=== PATIENT | female | born 1970 | race American Indian/Alaskan Native ===

== ENCOUNTER 2018-01-06 13:54 | Emergency (ER) | payer MEDICAID, SELFPAY ==
[2018-01-06 14:04] VITALS: BP 175/98
[2018-01-06] MEDS ORDERED: traMADol 50 MG Tab PO ONE (15:04)
[2018-01-06] MEDS ORDERED: Naproxen 500 MG Tab PO ONE (15:04)
--- NOTE | 2018-01-06 15:17 | EDM.PDOC ---
Scribed by Chyna Castle 01/06/18 1511 for Fritz Vasquez MD ED HPI GENERAL MEDICAL PROBLEM - General Chief Complaint: Lower Extremity Injury/Pain Stated Complaint: RT KNEE Time Seen by Provider: 01/06/18 14:33 Source of Information: Reports: Patient, RN, RN Notes Reviewed History Limitations: Reports: No Limitations - History of Present Illness INITIAL COMMENTS - FREE TEXT/NARRATIVE: Patient presents to ER with complaint of right knee pain without injury. History of arthritis around the "knee cap". No change in activity level. It has become progressively more pain over the past several weeks. 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 no reaction. Dermatologic History: Reports: Cellulitis Other Dermatologic History: right calve cellulitis - Infectious Disease History Infectious Disease History: Reports: C-Difficile - Past Surgical History Musculoskeletal Surgical History: Reports: Arthroscopic Knee, Carpal Tunnel, Shoulder Surgery Social & Family History - Family History Family Medical History: Noncontributory HEENT: Reports: Other (See Below) Other HEENT Family History: mother had surgery on eyes, unsure what for. Cardiac: Reports: Hypertension (mother) Other Cardiac Family History: Mother has hypertension. Respiratory: Reports: Asthma, Sleep Apnea Other Respiratory Family Hisory: Mother has asthma and sleep apnea. OBGYN: Reports: Musculoskeletal: Reports: Arthritis - Tobacco Use Smoking Status *Q: Current Every Day Smoker Years of Tobacco use: 20 Packs/Tins Daily: 0.5 Used Tobacco, but Quit: No Second Hand Smoke Exposure: Yes - Caffeine Use Caffeine Use: Reports: Coffee Other Caffeine Use: 2-3 cups/day - Alcohol Use Days Per Week of Alcohol Use: 0 - Recreational Drug Use Recreational Drug Use: No Review of Systems - Review of Systems Review Of Systems: ROS reveals no pertinent complaints other than HPI. ED EXAM, GENERAL - Physical Exam Exam: See Below Exam Limited By: No Limitations General Appearance: Alert, WD/WN, No Apparent Distress, Obese Head: Atraumatic, Normocephalic Respiratory/Chest: No Respiratory Distress Extremities: Other (right knee tender to palpation anteriorly and medially. Mild soft tissue swelling. No erythema. No increased warmth. Full but painful range of motion. ) Neurological: Alert, No Motor/Sensory Deficits Course - Vital Signs Last Recorded V/S: Last Vital Signs Temp 37.3 C 01/06/18 14:02 Pulse 103 H 01/06/18 14:02 Resp 16 01/06/18 14:02 BP 175/98 H 01/06/18 14:02 Pulse Ox 97 01/06/18 14:02 - Orders/Labs/Meds Orders: Active Orders 24 hr Category Date Time Status Knee 3V Rt [CR] Urgent Exams 01/06/18 14:34 Taken DME for Discharge [COMM] Routine Oth 01/06/18 15:03 Ordered Meds: Medications Discontinued Medications Generic Name Dose Route Start Last Admin Trade Name Ray PRN Reason Stop Dose Admin Naproxen 500 mg 01/06/18 15:04 Naprosyn PO 01/06/18 15:05 ONETIME ONE Tramadol HCl 50 mg 01/06/18 15:04 Ultram PO 01/06/18 15:05 ONETIME ONE - Radiology Interpretation Free Text/Narrative:: Xray Rt knee: OA, no fracture; see Rad. report. Departure - Departure Time of Disposition: 15:06 Disposition: Home, Self-Care 01 Condition: Good Clinical Impression: Osteoarthritis of right knee Qualifiers: Osteoarthritis type: unspecified Qualified Code(s): M17.11 - Unilateral primary osteoarthritis, right knee - Discharge Information Instructions: Osteoarthritis, Knee Pain, [id number] Forms: ED Department Discharge Additional Instructions: Rx: Naprosyn 500mg *Take with food/meals. Rx: Tramadol 50mg *Do not drive or work while under the influence of this medication. Use crutches as needed for partial weight bearing as needed. Use over the counter Capsaisin cream: Apply to affected knee four times a day. Follow up in clinic this week for recheck. - My Orders Last 24 Hours: My Active Orders 01/06/18 14:34 Knee 3V Rt [CR] Urgent 01/06/18 15:03 DME for Discharge [COMM] Routine - Assessment/Plan Last 24 Hours: My Active Orders 01/06/18 14:34 Knee 3V Rt [CR] Urgent 01/06/18 15:03 DME for Discharge [COMM] Routine I have read and agree with the documentation that has been completed regarding this visit. By signing this record, I attest that the documentation was completed in my physical presence and is an accurate record of the encounter.
== END 2018-01-06 15:25 | disposition home or self-care (01) ==
LOC: DL.ED 13:54
DX: M17.11 Unilateral primary osteoarthritis, right knee (principal); I10 Essential (primary) hypertension; F17.210 Nicotine dependence, cigarettes, uncomplicated; Z88.5 Allergy status to narcotic agent; Z88.1 Allergy status to other antibiotic agents; Z88.8 Allergy status to other drugs, medicaments and biological substances
CPT/HCPCS: 73562; 99283; A9270

== ENCOUNTER 2019-11-16 17:16 | Emergency (ER) | payer OTHER ==
[2019-11-16] MEDS ORDERED: Acetaminophen/HYDROcodone 325-10 MG Tab PO ONE (17:17)
[2019-11-16] MEDS ORDERED: Cyclobenzaprine 10 MG Tab PO ONE (17:17)
[2019-11-16 18:17] VITALS: BP 157/87; PULSE 116
[2019-11-16 19:16] LABS: ANION GAP 11.8 mEq/L (7-13)
[2019-11-16] MEDS: HYDROmorphone 1 MG/ML Syringe IVPUSH ONE (19:33)
[2019-11-16] MEDS: Ondansetron 4 MG/2 ML SDV IVPUSH ONE (19:34)
--- NOTE | 2019-11-16 20:13 | EDM.PDOC ---
ED HPI GENERAL MEDICAL PROBLEM - General Chief Complaint: Lower Extremity Injury/Pain Stated Complaint: LEFT HIP MUSCLE SPASMS Time Seen by Provider: 11/16/19 19:00 Source of Information: Reports: Patient History Limitations: Reports: No Limitations - History of Present Illness INITIAL COMMENTS - FREE TEXT/NARRATIVE: Pain left hip past couple months, MRI done question of cancer vs arthritis, Appointment pending in [place]. Had one and MRI reviewed with reported differing opinion. Taking hydrocodone 5mg and ibuprofen not helping. Tonight severe muscle spasms in left thigh radiating down to toes at times. Hurts to step on foot. No weakness just pain with minimal movment, clammy on arrival per RN. Left Hip Pain Score (Numeric/FACES): 10 - Related Data Allergies Allergy/AdvReac Type Severity Reaction Status Date / Time amoxicillin Allergy Rash Verified 11/16/19 18:15 codeine Allergy Rash Verified 11/16/19 18:15 duloxetine [From Cymbalta] Allergy Depression Verified 11/16/19 18:15 Home Meds: Home Meds . 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 no reaction. Immunologic History: Reports: None Oncologic (Cancer) History: Reports: None Dermatologic History: Reports: Cellulitis Other Dermatologic History: right calve cellulitis - Infectious Disease History Infectious Disease History: Reports: C-Difficile - Past Surgical History Head Surgeries/Procedures: Reports: None Female Surgical History: Reports: Hysterectomy Musculoskeletal Surgical History: Reports: Arthroscopic Knee, Carpal Tunnel, Shoulder Surgery Social & Family History - Family History Family Medical History: Noncontributory HEENT: Reports: Other (See Below) Other HEENT Family History: mother had surgery on eyes, unsure what for. Cardiac: Reports: Hypertension Other Cardiac Family History: Mother has hypertension. Respiratory: Reports: Asthma, Sleep Apnea Other Respiratory Family Hisory: Mother has asthma and sleep apnea. OBGYN: Reports: Musculoskeletal: Reports: Arthritis - Tobacco Use Smoking Status *Q: Current Every Day Smoker Years of Tobacco use: 34 Packs/Tins Daily: 0.5 - Caffeine Use Caffeine Use: Reports: Soda Other Caffeine Use: 2-3 cups/day - Recreational Drug Use Recreational Drug Use: No Review of Systems - Review of Systems Review Of Systems: Comprehensive ROS is negative, except as noted in HPI. ED EXAM, GENERAL - Physical Exam Exam: See Below Exam Limited By: No Limitations General Appearance: Alert, No Apparent Distress Eye Exam: Bilateral Eye: EOMI Ears: Normal External Exam, Hearing Grossly Normal Nose: Normal Inspection Throat/Mouth: Normal Inspection Head: Atraumatic, Normocephalic Neck: Normal Inspection, Full Range of Motion Respiratory/Chest: No Respiratory Distress, Lungs Clear, Normal Breath Sounds Cardiovascular: Normal Peripheral Pulses, Regular Rate, Rhythm GI/Abdominal: Normal Bowel Sounds, Soft, Non-Tender Extremities: Leg Pain, Limited Range of Motion (pain with external rotation and flexion left hip Pain SI with movment, ) Neurological: Alert, Oriented, Normal Cognition Skin Exam: Warm, Dry, Intact, Normal Color Course - Vital Signs Last Recorded V/S: Last Vital Signs Temp 97.0 F 11/16/19 18:15 Pulse 116 H 11/16/19 18:15 Resp 20 11/16/19 18:15 BP 157/87 H 11/16/19 18:15 Pulse Ox 96 11/16/19 18:15 - Orders/Labs/Meds Labs: Laboratory Tests 11/16/19 11/16/19 Range/Units 18:12 18:12 WBC 9.9 (5.0-10.0) 10^3/uL RBC 5.02 (4.2-5.4) 10^6/uL Hgb 13.5 (12.0-16.0) g/dL Hct 42.4 (37.0-47.0) % MCV 84.5 (80-100) fL MCH 26.9 L (27.0-34.0) pg MCHC 31.8 L (33.0-35.0) g/dL Plt Count 414 D (150-450) 10^3/uL Neut % (Auto) 63.8 (42.2-75.2) % Lymph % (Auto) 24.7 (20.5-50.1) % [place] % (Auto) 6.1 (2-8) % Eos % (Auto) 5.1 H (1.0-3.0) % Baso % (Auto) 0.3 (0.0-1.0) % Sodium 141 (136-145) mmol/L Potassium 3.8 (3.5-5.1) mmol/L Chloride 103 (98-107) mmol/L Carbon Dioxide 30 (21-32) mmol/L Anion Gap 11.8 (7-13) mEq/L BUN 23 H (7-18) mg/dL Creatinine 1.12 H (0.55-1.02) mg/dL Est Cr Clr Drug Dosing 53.04 mL/min Estimated GFR (MDRD) 52 BUN/Creatinine Ratio 20.5 (No establ ref range) Glucose 112 H (74-99) mg/dL Calcium 8.4 L (8.5-10.1) mg/dL Total Bilirubin 0.1 L (0.2-1.0) mg/dL AST 23 (15-37) U/L ALT 43 (14-59) U/L Alkaline Phosphatase 113 (46-116) U/L C-Reactive Protein 1.4 H (0.0-0.9) mg/dL Total Protein 8.0 (6.4-8.2) g/dL Albumin 3.4 (3.4-5.0) g/dL Globulin 4.6 Albumin/Globulin Ratio 0.7 Meds: Medications Discontinued Medications Generic Name Dose Route Start Last Admin Trade Name Robinq PRN Reason Stop Dose Admin Hydrocodone Bitart/Acetaminophen Confirm 11/16/19 20:07 11/16/19 20:19 [place] 325-10 Mg Administered 11/16/19 20:08 Not Given Dose 2 tab .ROUTE .STK-MED ONE Cyclobenzaprine HCl Confirm 11/16/19 20:07 11/16/19 20:19 Flexeril Administered 11/16/19 20:08 Not Given Dose 20 mg .ROUTE .STK-MED ONE Hydromorphone HCl 1 mg 11/16/19 19:15 11/16/19 19:33 Dilaudid IVPUSH 11/16/19 19:16 1 mg ONETIME ONE Administration Ondansetron HCl 4 mg 11/16/19 19:15 11/16/19 19:34 Zofran IVPUSH 11/16/19 19:16 4 mg ONETIME ONE Administration Departure - Departure Time of Disposition: 20:06 Disposition: Home, Self-Care 01 Condition: Good Clinical Impression: Pain, joint, hip, left - Discharge Information *PRESCRIPTION DRUG MONITORING PROGRAM REVIEWED*: No *COPY OF PRESCRIPTION DRUG MONITORING REPORT IN PATIENT MEHREEN: No Instructions: Hip Pain Forms: ED Department Discharge Additional Instructions: rest ice to hip hydrocodone apap 10/325 one every 6 hours as needed for pain flexeril 10mg one every 8 hours as needed for pain walker to aid linda load bearing on hip follow up this week with primary care Sepsis Event Note - Evaluation Sepsis Screening Result: No Definite Risk - Focused Exam Vital Signs: Vital Signs Temp Pulse Resp BP Pulse Ox 11/16/19 18:15 97.0 F 116 H 20 157/87 H 96 Date Exam was Performed: 11/17/19 Time Exam was Performed: 01:23
[2019-11-16] MEDS: Acetaminophen/HYDROcodone 325-10 MG Tab ONE (20:19)
[2019-11-16] MEDS: Cyclobenzaprine 10 MG Tab ONE (20:19)
== END 2019-11-16 20:18 | disposition home or self-care (01) ==
LOC: DL.ED 17:16
DX: M25.552 Pain in left hip (principal); E66.9 Obesity, unspecified; Z68.41 Body mass index [BMI] 40.0-44.9, adult; J45.909 Unspecified asthma, uncomplicated; I10 Essential (primary) hypertension; Z88.0 Allergy status to penicillin; Z88.5 Allergy status to narcotic agent; Z88.8 Allergy status to other drugs, medicaments and biological substances; F17.210 Nicotine dependence, cigarettes, uncomplicated
CPT/HCPCS: 36415; 72131; 72192; 80053; 85025; 86140; 96374; 96375; 99284; A9270; J1170; J2405; 99283

== ENCOUNTER 2019-12-22 19:34 | Emergency (ER) | payer OTHER ==
[2019-12-22] MEDS ORDERED: Cyclobenzaprine 10 MG Tab PO ONE (19:35)
[2019-12-22] MEDS ORDERED: Acetaminophen/HYDROcodone 325-10 MG Tab PO ONE ×2 (19:35→20:01)
[2019-12-22 19:44] VITALS: PULSE 115
[2019-12-22 19:50] VITALS: BP 152/84
[2019-12-22] MEDS ORDERED: Acetaminophen/HYDROcodone 325-10 MG Tab ONE (20:14)
[2019-12-22] MEDS ORDERED: Cyclobenzaprine 10 MG Tab ONE (20:14)
--- NOTE | 2019-12-22 20:28 | EDM.PDOC ---
ED HPI GENERAL MEDICAL PROBLEM - General Chief Complaint: Lower Extremity Injury/Pain Stated Complaint: back pain Time Seen by Provider: 12/22/19 19:40 Source of Information: Reports: Patient History Limitations: Reports: No Limitations - History of Present Illness INITIAL COMMENTS - FREE TEXT/NARRATIVE: ED per w/c with c/o left hip pain ongoing since August. Intermittent periods of pain worsening with muscle spasms. Steroid shot last week into hip. Pain has been worse since Ran out of Meloxicam last week. Unable to get in to see primary. pain starts left hip, radiates to left anterior groin and down left anterior thigh. Denies injury, No weakness. Increased pain with movement and weight bearing Left Hip Pain Score (Numeric/FACES): 10 - Related Data Allergies Allergy/AdvReac Type Severity Reaction Status Date / Time amoxicillin Allergy Rash Verified 12/22/19 19:42 codeine Allergy Rash Verified 12/22/19 19:42 duloxetine [From Cymbalta] Allergy Depression Verified 12/22/19 19:42 Home Meds: Home Meds . 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 no reaction. Immunologic History: Reports: None Oncologic (Cancer) History: Reports: None Dermatologic History: Reports: Cellulitis Other Dermatologic History: right calve cellulitis - Infectious Disease History Infectious Disease History: Reports: C-Difficile - Past Surgical History Head Surgeries/Procedures: Reports: None Female Surgical History: Reports: Hysterectomy Musculoskeletal Surgical History: Reports: Arthroscopic Knee, Carpal Tunnel, Shoulder Surgery Social & Family History - Family History Family Medical History: Noncontributory HEENT: Reports: Other (See Below) Other HEENT Family History: mother had surgery on eyes, unsure what for. Cardiac: Reports: Hypertension Other Cardiac Family History: Mother has hypertension. Respiratory: Reports: Asthma, Sleep Apnea Other Respiratory Family Hisory: Mother has asthma and sleep apnea. OBGYN: Reports: Musculoskeletal: Reports: Arthritis - Tobacco Use Smoking Status *Q: Current Every Day Smoker Years of Tobacco use: 32 Packs/Tins Daily: 0.3 Second Hand Smoke Exposure: Yes - Caffeine Use Caffeine Use: Reports: Soda Other Caffeine Use: 2-3 cups/day - Recreational Drug Use Recreational Drug Use: No Review of Systems - Review of Systems Review Of Systems: Comprehensive ROS is negative, except as noted in HPI. ED EXAM, GENERAL - Physical Exam Exam: See Below Exam Limited By: Language Barrier General Appearance: Alert, Moderate Distress Eye Exam: Bilateral Eye: EOMI Ears: Normal External Exam Nose: Normal Inspection Throat/Mouth: Normal Inspection Head: Atraumatic, Normocephalic Neck: Normal Inspection Respiratory/Chest: No Respiratory Distress, Lungs Clear Cardiovascular: Regular Rate, Rhythm GI/Abdominal: Normal Bowel Sounds, Soft Back Exam: Full Range of Motion. No: Paraspinal Tenderness, Vertebral Tenderness Extremities: No Pedal Edema, Leg Pain (anterior lateral upper thigh, left hip), Limited Range of Motion Neurological: Alert, Oriented, Normal Cognition Psychiatric: Anxious, Tearful Skin Exam: Warm, Dry, Intact, Normal Color Course - Vital Signs Last Recorded V/S: Last Vital Signs Temp 96.9 F 12/22/19 19:37 Pulse 115 H 12/22/19 19:37 Resp 18 12/22/19 19:37 BP 152/84 H 12/22/19 19:50 Pulse Ox 97 12/22/19 19:37 - Orders/Labs/Meds Meds: Medications Discontinued Medications Generic Name Dose Route Start Last Admin Trade Name Ray PRN Reason Stop Dose Admin Hydrocodone Bitart/Acetaminophen 1 tab 12/22/19 20:01 12/22/19 20:07 [place] 325-10 Mg PO 12/22/19 20:02 1 tab ONETIME ONE Administration Hydrocodone Bitart/Acetaminophen Confirm 12/22/19 20:14 12/22/19 20:22 [place] 325-10 Mg Administered 12/22/19 20:15 Not Given Dose 3 tab .ROUTE .STK-MED ONE Cyclobenzaprine HCl Confirm 12/22/19 20:14 12/22/19 20:22 Flexeril Administered 12/22/19 20:15 Not Given Dose 20 mg .ROUTE .STK-MED ONE Orphenadrine Citrate 60 mg 12/22/19 20:02 12/22/19 20:07 Norflex IM 12/22/19 20:03 60 mg ONETIME ONE Administration Departure - Departure Time of Disposition: 20:16 Disposition: Home, Self-Care 01 Condition: Good Clinical Impression: Left hip pain, Muscle spasm - Discharge Information *PRESCRIPTION DRUG MONITORING PROGRAM REVIEWED*: Yes *COPY OF PRESCRIPTION DRUG MONITORING REPORT IN PATIENT MEHREEN: No Instructions: Muscle Cramps and Spasms, [id number] Referrals: Javier Ferreira [Primary Care Provider] - Forms: ED Department Discharge Additional Instructions: limited weight bearing follow up with specialist in am meloxicam 7.5mg one daily as needed, follow with primary care for additional refills hydrocodone 10/325 one every 6 hours as needed for pain #7 flexeril 10mg one every 8 hours as needed for spasm ice to hip Sepsis Event Note - Evaluation Sepsis Screening Result: No Definite Risk - Focused Exam Vital Signs: Vital Signs Temp Pulse Resp BP Pulse Ox 12/22/19 19:50 152/84 H 12/22/19 19:37 96.9 F 115 H 18 191/95 H 97 Date Exam was Performed: 12/23/19 Time Exam was Performed: 03:30
== END 2019-12-22 20:30 | disposition home or self-care (01) ==
LOC: DL.ED 19:34
DX: M25.552 Pain in left hip (principal); M62.838 Other muscle spasm; I10 Essential (primary) hypertension; M19.90 Unspecified osteoarthritis, unspecified site; E66.9 Obesity, unspecified; Z68.42 Body mass index [BMI] 45.0-49.9, adult; F17.210 Nicotine dependence, cigarettes, uncomplicated; Z88.1 Allergy status to other antibiotic agents; Z88.5 Allergy status to narcotic agent; Z88.8 Allergy status to other drugs, medicaments and biological substances
CPT/HCPCS: 96372; 99283; A9270-GY; J2360

== ENCOUNTER 2020-02-05 16:03 | Emergency (ER) | payer MEDICAID, OTHER ==
[2020-02-05 16:51] VITALS: BP 148/58; PULSE 112
--- NOTE | 2020-02-05 16:57 | EDM.PDOC ---
Scribed by Chyna Castle 02/05/20 0617 for Fritz Vasquez MD ED HPI GENERAL MEDICAL PROBLEM - General Chief Complaint: Back Pain or Injury Stated Complaint: pinched nerve Time Seen by Provider: 02/05/20 16:42 Source of Information: Reports: Patient, RN, RN Notes Reviewed History Limitations: Reports: No Limitations - History of Present Illness INITIAL COMMENTS - FREE TEXT/NARRATIVE: Patient presents to ER via POV with acute flare-up of acute low back pain worsening over the past several days without any acute injury. She has had this happen several times in the past. Complains of pain radiating from the low back through the left leg at the posterior and medial thigh to the knee and occasionally to the ankle. She describes the pain as sharp and at times electric or shock like. Denies loss of bowel or bladder control, saddle area numbness or motor weakness. Onset: Unknown/Unsure Duration: Getting Worse Location: Reports: Back Quality: Reports: Ache Severity: Severe Improves with: Reports: None Worsens with: Reports: None Associated Symptoms: Reports: No Other Symptoms Lower Back Pain Score (Numeric/FACES): 10 - Related Data Allergies Allergy/AdvReac Type Severity Reaction Status Date / Time amoxicillin Allergy Rash Verified 12/22/19 19:42 codeine Allergy Rash Verified 12/22/19 19:42 duloxetine [From Cymbalta] Allergy Depression Verified 12/22/19 19:42 Home Meds: Home Meds . [No Known Home Meds] 01/06/18 [History] . 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 no reaction. Immunologic History: Reports: None Oncologic (Cancer) History: Reports: None Dermatologic History: Reports: Cellulitis Other Dermatologic History: right calve cellulitis - Infectious Disease History Infectious Disease History: Reports: C-Difficile - Past Surgical History Head Surgeries/Procedures: Reports: None Female Surgical History: Reports: Hysterectomy Musculoskeletal Surgical History: Reports: Arthroscopic Knee, Carpal Tunnel, Shoulder Surgery Social & Family History - Family History Family Medical History: Noncontributory HEENT: Reports: Other (See Below) Other HEENT Family History: mother had surgery on eyes, unsure what for. Cardiac: Reports: Hypertension Other Cardiac Family History: Mother has hypertension. Respiratory: Reports: Asthma, Sleep Apnea Other Respiratory Family Hisory: Mother has asthma and sleep apnea. OBGYN: Reports: Musculoskeletal: Reports: Arthritis - Caffeine Use Caffeine Use: Reports: Coffee, Soda Other Caffeine Use: 2-3 cups/day - Living Situation & Occupation Living situation: Reports: with Family ED ROS GENERAL - Review of Systems Review Of Systems: Comprehensive ROS is negative, except as noted in HPI. ED EXAM,LOWER BACK PAIN/INJURY - Physical Exam Exam: See Below Exam Limited By: No Limitations General Appearance: Alert, WD/WN, No Apparent Distress, Obese Head: Atraumatic, Normocephalic Neck: Normal Inspection, Supple, Non-Tender, Full Range of Motion Respiratory/Chest: No Respiratory Distress, Lungs Clear, Normal Breath Sounds, No Accessory Muscle Use, Chest Non-Tender Cardiovascular: Normal Peripheral Pulses, Regular Rate, Rhythm, No Edema GI/Abdominal: Normal Bowel Sounds, Soft, Non-Tender, Other (benign obese abdomen ) (Female) Exam: Deferred Rectal (Female) Exam: Deferred Back Exam: Decreased Range of Motion, Muscle Spasm, Paraspinal Tenderness. No: CVA Tenderness (L), CVA Tenderness (R), Vertebral Tenderness Extremities: Normal Inspection, Normal Range of Motion, Normal Capillary Refill Neurological: Alert, Normal Mood/Affect, Normal Dorsiflexion, CN II-XII Intact, No Motor/Sensory Deficits, Oriented x 3 Psychiatric: Normal Mood, Tearful Skin Exam: Warm, Dry, Intact, Normal Color, No Rash Course - Vital Signs Last Recorded V/S: Last Vital Signs Temp 96.5 F L 02/05/20 16:15 Pulse 112 H 02/05/20 16:15 Resp 20 02/05/20 16:15 BP 148/58 H 02/05/20 16:15 Pulse Ox 96 02/05/20 16:15 - Orders/Labs/Meds Meds: Medications Discontinued Medications Generic Name Dose Route Start Last Admin Trade Name Ray PRN Reason Stop Dose Admin Hydrocodone Bitart/Acetaminophen 1 tab 02/05/20 16:40 [place] 325-10 Mg PO 02/05/20 16:41 ONETIME ONE Dexamethasone 8 mg 02/05/20 16:39 Dexamethasone IM 02/05/20 16:40 ONETIME ONE Orphenadrine Citrate 60 mg 02/05/20 16:39 Norflex IM 02/05/20 16:40 ONETIME ONE Departure - Departure Time of Disposition: 16:54 Disposition: Home, Self-Care 01 Condition: Good Clinical Impression: Acute left lumbar radiculopathy - Discharge Information *PRESCRIPTION DRUG MONITORING PROGRAM REVIEWED*: Not Applicable *COPY OF PRESCRIPTION DRUG MONITORING REPORT IN PATIENT MEHREEN: Not Applicable Instructions: Lumbosacral Radiculopathy Forms: ED Department Discharge Additional Instructions: Rx: Cyclobenzaprine 10mg *No driving, may cause drowsiness. Rx: Decadron (Dexamethasone) 4mg Rx: Hydrocodone APAP 5mg/325mg *No driving, may cause drowsiness. Follow up in clinic next week for recheck and consideration of referral to a back specialist. Sepsis Event Note - Focused Exam Vital Signs: Vital Signs Temp Pulse Resp BP Pulse Ox 02/05/20 16:15 96.5 F L 112 H 20 148/58 H 96 Date Exam was Performed: 02/05/20 Time Exam was Performed: 16:51 I have read and agree with the documentation that has been completed regarding this visit. By signing this record, I attest that the documentation was completed in my physical presence and is an accurate record of the encounter.
[2020-02-05] MEDS: Dexamethasone 4 MG/ML SDV IM ONE (16:59)
[2020-02-05] MEDS: Acetaminophen/HYDROcodone 325-10 MG Tab PO ONE (17:00)
== END 2020-02-05 17:27 | disposition home or self-care (01) ==
LOC: DL.ED 16:03
DX: M54.16 Radiculopathy, lumbar region (principal); I10 Essential (primary) hypertension; E66.9 Obesity, unspecified; Z88.1 Allergy status to other antibiotic agents; Z88.5 Allergy status to narcotic agent; Z88.8 Allergy status to other drugs, medicaments and biological substances; Z68.42 Body mass index [BMI] 45.0-49.9, adult
CPT/HCPCS: 96372; 99283; A9270; J1100; J2360

== ENCOUNTER 2020-08-31 18:05 | Emergency (ER) | payer MEDICAID, OTHER ==
[2020-08-31] MEDS ORDERED: Furosemide 40 MG Tab PO ONE (18:06)
[2020-08-31] MEDS ORDERED: Doxycycline 100 MG Vial IV ONE (18:06)
--- NOTE | 2020-08-31 18:19 | EDM.PDOC ---
ED HPI GENERAL MEDICAL PROBLEM - General Stated Complaint: RETAINING FLUID, BREATHING Time Seen by Provider: 08/31/20 18:18 Source of Information: Reports: Patient, RN History Limitations: Reports: No Limitations - History of Present Illness INITIAL COMMENTS - FREE TEXT/NARRATIVE: ED per w/c c/o swelling, SOB, on prednisone, Tested negative COVID 07/27. On prednisone one week for bronchitis and left hip pain. Breathing worse tonight when lying flat, noticed redness to legs tonight. Swelling actually started yesterday, Has had 2-3 previous episodes since July, Usually resolve with elevation. Seen in clinic x 1, Admits eating large amount of ham prior to this onset. Ocassional cough. no fever or chills. no chest pain. Denies hx of blood clots. Notes swelling up to waist. - Related Data Allergies Allergy/AdvReac Type Severity Reaction Status Date / Time amoxicillin Allergy Rash Verified 08/31/20 20:54 codeine Allergy Rash Verified 08/31/20 20:54 duloxetine [From Cymbalta] Allergy Depression Verified 08/31/20 20:54 Home Meds: Home Meds Acetaminophen/Diphenhydramine [Tylenol Pm Ex-Strength Caplet] 1,000 mg PO ASDIRECTED PRN 02/05/20 [History] Meloxicam 15 mg PO ASDIRECTED PRN 02/05/20 [History] buPROPion [Wellbutrin] 100 mg PO DAILY 02/05/20 [History] lisinopriL [Lisinopril] 10 mg PO DAILY 02/05/20 [History] Past Medical History HEENT History: Reports: Impaired Vision Other HEENT History: wears glasses Cardiovascular History: Reports: Hypertension Respiratory History: Reports: Asthma, Bronchitis, Recurrent, Sleep Apnea Gastrointestinal History: Reports: None Genitourinary History: Reports: UTI, Recurrent 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 no reaction. Immunologic History: Reports: None Oncologic (Cancer) History: Reports: None Dermatologic History: Reports: Cellulitis Other Dermatologic History: right calve cellulitis - Infectious Disease History Infectious Disease History: Reports: C-Difficile - Past Surgical History Head Surgeries/Procedures: Reports: None Female Surgical History: Reports: Hysterectomy Musculoskeletal Surgical History: Reports: Arthroscopic Knee, Carpal Tunnel, Shoulder Surgery Social & Family History - Family History Family Medical History: No Pertinent Family History HEENT: Reports: Other (See Below) Other HEENT Family History: mother had surgery on eyes, unsure what for. Cardiac: Reports: Hypertension Other Cardiac Family History: Mother has hypertension. Respiratory: Reports: Asthma, Sleep Apnea Other Respiratory Family Hisory: Mother has asthma and sleep apnea. OBGYN: Reports: Musculoskeletal: Reports: Arthritis - Caffeine Use Caffeine Use: Reports: Coffee, Soda Other Caffeine Use: 2-3 cups/day - Living Situation & Occupation Living situation: Reports: with Family ED ROS GENERAL - Review of Systems Review Of Systems: See Below ED EXAM, GENERAL - Physical Exam Exam: See Below Exam Limited By: No Limitations General Appearance: Alert, Anxious, Mild Distress Eye Exam: Bilateral Eye: EOMI Ears: Normal External Exam, Normal TMs Nose: Normal Inspection Throat/Mouth: Normal Inspection Head: Atraumatic Neck: Normal Inspection, Full Range of Motion Respiratory/Chest: No Respiratory Distress, Crackles (fine left base) Cardiovascular: Normal Peripheral Pulses, Regular Rate, Rhythm. No: No Edema (3+ bilteral slightly greater left. Pedal to upper thigh with redneess pedal to michael inner thighs) GI/Abdominal: Normal Bowel Sounds Back Exam: Normal Inspection, Full Range of Motion Extremities: Pedal Edema Neurological: Alert, Oriented, Inattentive Psychiatric: Anxious Skin Exam: Erythema, Increased Warmth Course - Vital Signs Last Recorded V/S: Last Vital Signs Temp 96 F L 08/31/20 18:11 Pulse 109 H 08/31/20 18:11 Resp 20 08/31/20 18:11 BP 137/75 08/31/20 18:11 Pulse Ox 95 08/31/20 18:11 - Orders/Labs/Meds Labs: Laboratory Tests 08/31/20 08/31/20 08/31/20 Range/Units 18:25 18:25 18:30 WBC (5.0-10.0) 10^3/uL RBC (4.2-5.4) 10^6/uL Hgb (12.0-16.0) g/dL Hct (37.0-47.0) % MCV (80-100) fL MCH (27.0-34.0) pg MCHC (33.0-35.0) g/dL Plt Count (150-450) 10^3/uL Neut % (Auto) (42.2-75.2) % Lymph % (Auto) (20.5-50.1) % [place] % (Auto) (2-8) % Eos % (Auto) (1.0-3.0) % Baso % (Auto) (0.0-1.0) % Add Manual Diff Neutrophils % (Manual) (42-75) % Lymphocytes % (Manual) (20-50) % Monocytes % (Manual) (2-8) % Eosinophils % (Manual) (1-3) % Stomatocytes PT (9.0-12.0) SEC INR (0.9-1.2) D-Dimer, Quantitative (0-400) ng/mL Sodium (136-145) mmol/L Potassium (3.5-5.1) mmol/L Chloride (98-107) mmol/L Carbon Dioxide (21-32) mmol/L Anion Gap (7-13) mEq/L BUN (7-18) mg/dL Creatinine (0.55-1.02) mg/dL Est Cr Clr Drug Dosing mL/min Estimated GFR (MDRD) BUN/Creatinine Ratio (No establ ref range) Glucose (74-99) mg/dL Lactic Acid (0.4-2.0) mmol/L Calcium (8.5-10.1) mg/dL Magnesium (1.8-2.4) mg/dL Total Bilirubin (0.2-1.0) mg/dL AST (15-37) U/L ALT (14-59) U/L Alkaline Phosphatase (46-116) U/L Troponin I (0.000-0.056) ng/mL B-Natriuretic Peptide (0-100) pg/ml Total Protein (6.4-8.2) g/dL Albumin (3.4-5.0) g/dL Globulin Albumin/Globulin Ratio Amylase (25-115) U/L Lipase (73-393) U/L Urine Color Yellow (YELLOW) Urine Appearance Slightly cloudy (CLEAR) Urine pH 5.5 (5.0-9.0) Ur Specific [place] 1.020 (1.005-1.030) Urine Protein Negative (NEGATIVE) Urine Glucose (UA) Negative (NEGATIVE) Urine Ketones Negative (NEGATIVE) Urine Occult Blood Trace-intact H (NEGATIVE) Urine Nitrite Negative (NEGATIVE) Urine Bilirubin Negative (NEGATIVE) Urine Urobilinogen 0.2 (0.2-1.0) mg/dL Ur Leukocyte Esterase Large H (NEGATIVE) Urine RBC 0-5 /HPF Urine WBC Packed H (0-5/HPF) /HPF Ur Epithelial Cells Moderate H (NOT SEEN) /HPF Amorphous Sediment Few (NOT SEEN) /HPF Urine Bacteria Few (0-FEW/HPF) /HPF Urine Mucus Rare (NOT SEEN) /LPF Urine Opiates Screen Negative (NEGATIVE) Ur Oxycodone Screen Negative (NEGATIVE) Urine Methadone Screen Negative (NEGATIVE) Ur Barbiturates Screen Negative (NEGATIVE) U Tricyclic Antidepress Negative (NEGATIVE) Ur Phencyclidine Scrn Negative (NEGATIVE) Ur Amphetamine Screen Negative (NEGATIVE) U Methamphetamines Scrn Positive H (NEGATIVE) Urine MDMA Screen Negative (NEGATIVE) U Benzodiazepines Scrn Negative (NEGATIVE) Urine Cocaine Screen Negative (NEGATIVE) U Marijuana (THC) Screen Negative (NEGATIVE) SARS-CoV-2 RNA (NGA) Negative (NEGATIVE) 08/31/20 08/31/20 08/31/20 Range/Units 18:37 18:37 18:37 WBC 13.1 H (5.0-10.0) 10^3/uL RBC 5.20 (4.2-5.4) 10^6/uL Hgb 12.4 (12.0-16.0) g/dL Hct 40.4 (37.0-47.0) % MCV 77.7 L D (80-100) fL MCH 23.8 L (27.0-34.0) pg MCHC 30.7 L (33.0-35.0) g/dL Plt Count 527 H D (150-450) 10^3/uL Neut % (Auto) 67.4 (42.2-75.2) % Lymph % (Auto) 23.2 (20.5-50.1) % [place] % (Auto) 4.7 (2-8) % Eos % (Auto) 4.4 H (1.0-3.0) % Baso % (Auto) 0.3 (0.0-1.0) % Add Manual Diff Yes Neutrophils % (Manual) 68 (42-75) % Lymphocytes % (Manual) 21 (20-50) % Monocytes % (Manual) 5 (2-8) % Eosinophils % (Manual) 6 H (1-3) % Stomatocytes 1+ slight PT (9.0-12.0) SEC INR (0.9-1.2) D-Dimer, Quantitative 1490 H (0-400) ng/mL Sodium 136 (136-145) mmol/L Potassium 3.9 (3.5-5.1) mmol/L Chloride 98 (98-107) mmol/L Carbon Dioxide 31 (21-32) mmol/L Anion Gap 10.9 (7-13) mEq/L BUN 23 H (7-18) mg/dL Creatinine 0.93 (0.55-1.02) mg/dL Est Cr Clr Drug Dosing 63.88 mL/min Estimated GFR (MDRD) > 60 BUN/Creatinine Ratio 24.7 (No establ ref range) Glucose 112 H (74-99) mg/dL Lactic Acid (0.4-2.0) mmol/L Calcium 8.7 (8.5-10.1) mg/dL Magnesium 2.0 (1.8-2.4) mg/dL Total Bilirubin 0.2 (0.2-1.0) mg/dL AST 14 L (15-37) U/L ALT 25 (14-59) U/L Alkaline Phosphatase 124 H (46-116) U/L Troponin I < 0.017 (0.000-0.056) ng/mL B-Natriuretic Peptide 12 (0-100) pg/ml Total Protein 8.9 H (6.4-8.2) g/dL Albumin 3.5 (3.4-5.0) g/dL Globulin 5.4 Albumin/Globulin Ratio 0.6 Amylase 33 (25-115) U/L Lipase 64 L (73-393) U/L Urine Color (YELLOW) Urine Appearance (CLEAR) Urine pH (5.0-9.0) Ur Specific [place] (1.005-1.030) Urine Protein (NEGATIVE) Urine Glucose (UA) (NEGATIVE) Urine Ketones (NEGATIVE) Urine Occult Blood (NEGATIVE) Urine Nitrite (NEGATIVE) Urine Bilirubin (NEGATIVE) Urine Urobilinogen (0.2-1.0) mg/dL Ur Leukocyte Esterase (NEGATIVE) Urine RBC /HPF Urine WBC (0-5/HPF) /HPF Ur Epithelial Cells (NOT SEEN) /HPF Amorphous Sediment (NOT SEEN) /HPF Urine Bacteria (0-FEW/HPF) /HPF Urine Mucus (NOT SEEN) /LPF Urine Opiates Screen (NEGATIVE) Ur Oxycodone Screen (NEGATIVE) Urine Methadone Screen (NEGATIVE) Ur Barbiturates Screen (NEGATIVE) U Tricyclic Antidepress (NEGATIVE) Ur Phencyclidine Scrn (NEGATIVE) Ur Amphetamine Screen (NEGATIVE) U Methamphetamines Scrn (NEGATIVE) Urine MDMA Screen (NEGATIVE) U Benzodiazepines Scrn (NEGATIVE) Urine Cocaine Screen (NEGATIVE) U Marijuana (THC) Screen (NEGATIVE) SARS-CoV-2 RNA (NGA) (NEGATIVE) 08/31/20 08/31/20 Range/Units 18:37 18:37 WBC (5.0-10.0) 10^3/uL RBC (4.2-5.4) 10^6/uL Hgb (12.0-16.0) g/dL Hct (37.0-47.0) % MCV (80-100) fL MCH (27.0-34.0) pg MCHC (33.0-35.0) g/dL Plt Count (150-450) 10^3/uL Neut % (Auto) (42.2-75.2) % Lymph % (Auto) (20.5-50.1) % [place] % (Auto) (2-8) % Eos % (Auto) (1.0-3.0) % Baso % (Auto) (0.0-1.0) % Add Manual Diff Neutrophils % (Manual) (42-75) % Lymphocytes % (Manual) (20-50) % Monocytes % (Manual) (2-8) % Eosinophils % (Manual) (1-3) % Stomatocytes PT 10.1 (9.0-12.0) SEC INR 1.1 (0.9-1.2) D-Dimer, Quantitative (0-400) ng/mL Sodium (136-145) mmol/L Potassium (3.5-5.1) mmol/L Chloride (98-107) mmol/L Carbon Dioxide (21-32) mmol/L Anion Gap (7-13) mEq/L BUN (7-18) mg/dL Creatinine (0.55-1.02) mg/dL Est Cr Clr Drug Dosing mL/min Estimated GFR (MDRD) BUN/Creatinine Ratio (No establ ref range) Glucose (74-99) mg/dL Lactic Acid 0.8 (0.4-2.0) mmol/L Calcium (8.5-10.1) mg/dL Magnesium (1.8-2.4) mg/dL Total Bilirubin (0.2-1.0) mg/dL AST (15-37) U/L ALT (14-59) U/L Alkaline Phosphatase (46-116) U/L Troponin I (0.000-0.056) ng/mL B-Natriuretic Peptide (0-100) pg/ml Total Protein (6.4-8.2) g/dL Albumin (3.4-5.0) g/dL Globulin Albumin/Globulin Ratio Amylase (25-115) U/L Lipase (73-393) U/L Urine Color (YELLOW) Urine Appearance (CLEAR) Urine pH (5.0-9.0) Ur Specific [place] (1.005-1.030) Urine Protein (NEGATIVE) Urine Glucose (UA) (NEGATIVE) Urine Ketones (NEGATIVE) Urine Occult Blood (NEGATIVE) Urine Nitrite (NEGATIVE) Urine Bilirubin (NEGATIVE) Urine Urobilinogen (0.2-1.0) mg/dL Ur Leukocyte Esterase (NEGATIVE) Urine RBC /HPF Urine WBC (0-5/HPF) /HPF Ur Epithelial Cells (NOT SEEN) /HPF Amorphous Sediment (NOT SEEN) /HPF Urine Bacteria (0-FEW/HPF) /HPF Urine Mucus (NOT SEEN) /LPF Urine Opiates Screen (NEGATIVE) Ur Oxycodone Screen (NEGATIVE) Urine Methadone Screen (NEGATIVE) Ur Barbiturates Screen (NEGATIVE) U Tricyclic Antidepress (NEGATIVE) Ur Phencyclidine Scrn (NEGATIVE) Ur Amphetamine Screen (NEGATIVE) U Methamphetamines Scrn (NEGATIVE) Urine MDMA Screen (NEGATIVE) U Benzodiazepines Scrn (NEGATIVE) Urine Cocaine Screen (NEGATIVE) U Marijuana (THC) Screen (NEGATIVE) SARS-CoV-2 RNA (NAG) (NEGATIVE) Meds: Medications Discontinued Medications Generic Name Dose Route Start Last Admin Trade Name Freq PRN Reason Stop Dose Admin Doxycycline Hyclate 200 mg 08/31/20 18:06 Vibramycin IV 08/31/20 18:07 .STK-MED ONE Doxycycline Monohydrate Confirm 08/31/20 20:36 Doxycycline Monohydrate Administered 08/31/20 20:37 Dose 200 mg .ROUTE .STK-MED ONE Furosemide Confirm 08/31/20 20:36 Lasix Administered 08/31/20 20:37 Dose 40 mg .ROUTE .STK-MED ONE Furosemide 40 mg 08/31/20 18:06 Lasix PO 08/31/20 18:07 .STK-MED ONE Iopamidol 100 ml 08/31/20 20:05 08/31/20 20:36 Isovue-370 (76%) IVPUSH 08/31/20 20:06 100 ml ONETIME ONE Administration Departure - Departure Time of Disposition: 21:15 Disposition: Home, Self-Care 01 Clinical Impression: Elevated d-dimer Edema Qualifiers: Edema type: unspecified Qualified Code(s): R60.9 - Edema, unspecified Dyspnea Qualifiers: Dyspnea type: shortness of breath Qualified Code(s): R06.02 - Shortness of breath; R06.00 - Dyspnea, unspecified; R06.01 - Orthopnea Cellulitis Qualifiers: Site of cellulitis: extremity Site of cellulitis of extremity: lower extremity Laterality: left Qualified Code(s): L03.116 - Cellulitis of left lower limb - Discharge Information *PRESCRIPTION DRUG MONITORING PROGRAM REVIEWED*: No *COPY OF PRESCRIPTION DRUG MONITORING REPORT IN PATIENT MEHREEN: No Instructions: Peripheral Edema Forms: ED Department Discharge Additional Instructions: Clinic follow up with primary care next week urgent follow up if symptoms worsen, increased breathing difficulty, fever, increased swelling limit salt and sodium intake doxycycline 100mg one twice daily for 10 days lasix 20mg daily x 2 days
[2020-08-31 18:30] VITALS: BP 137/75; PULSE 109
[2020-08-31 19:07] LABS: ANION GAP 10.9 mEq/L (7-13); CHLORIDE,CL 98 mmol/L (98-107); SODIUM,NA 136 mmol/L (136-145)
[2020-08-31] MEDS ORDERED: Iopamidol 755 Mg/ML 100 ML Bottle IVPUSH ONE (20:05)
[2020-08-31] MEDS ORDERED: Doxycycline Monohydrate 100 MG Cap ONE (20:36)
[2020-08-31] MEDS ORDERED: Furosemide 40 MG Tab ONE (20:36)
--- NOTE | 2020-08-31 21:04 | US ---
PROCEDURE INFORMATION: Exam: US Duplex Lower Extremity Veins, Bilateral Exam date and time: 08/31/2020 8:27 PM Age: 49 years old Clinical indication: Pain; Edema, localized and other: Redness; Lower extremity, bilateral; Leg, lower; Additional info: Joseph le redness TECHNIQUE: Imaging protocol: Real-time duplex ultrasound of the extremities with 2-D jeffries scale, color Doppler flow and spectral waveform analysis with image documentation. Complete exam focused on the bilateral lower extremity veins. COMPARISON: No relevant prior studies available. FINDINGS: Limitations: Study is technically limited due to body habitus. Right deep veins: The common femoral, proximal and mid femoral, popliteal, posterior tibial, and peroneal veins are patent without thrombus. Normal compressibility and/or augmentation response. Limited visualization of the distal right femoral vein. Right superficial veins: Saphenofemoral junction is patent without thrombus. Left deep veins: The common femoral, proximal femoral, popliteal, posterior tibial, and peroneal veins are patent without thrombus. Normal compressibility and/or augmentation response. Limited visualization of the mid and distal left femoral vein. Left superficial veins: Saphenofemoral junction is patent without thrombus. Soft tissues: Mild bilateral lower extremity subcutaneous edema. IMPRESSION: 1. Limited visualization of the distal right femoral vein and mid/distal left femoral vein due to body habitus. Otherwise, no evidence for deep venous thrombosis. 2. Mild bilateral lower extremity subcutaneous edema.
--- NOTE | 2020-08-31 22:03 | CT ---
PROCEDURE INFORMATION: Exam: CT Chest With Contrast; Diagnostic Exam date and time: 08/31/2020 8:11 PM Age: 49 years old Clinical indication: Other: SOB 1200 ddimer TECHNIQUE: Imaging protocol: Diagnostic computed tomography of the chest with intravenous contrast. 3D rendering (Not supervised by radiologist): MIP and/or 3D reconstructed images were created by the technologist. Radiation optimization: All CT scans at this facility use at least one of these dose optimization techniques: automated exposure control; mA and/or kV adjustment per patient size (includes targeted exams where dose is matched to clinical indication); or iterative reconstruction. Contrast material: ISOVUE 370; Contrast volume: 100 ml; Contrast route: INTRAVENOUS (IV); COMPARISON: 1. CR Chest 2V 10/22/2014 12:[address] - Lumbar Spine wo Cont 11/16/2019 7:07:58 PM FINDINGS: Lungs: Tracheobronchial structures are patent. There is linear scarring in the right upper lobe, left upper lobe, and left lingula. No focal consolidation. No pulmonary edema. Calcified granuloma in the left lower lobe. Mild elevation of the right hemidiaphragm. Pleural space: No pleural effusion. No pneumothorax. Heart: The heart is unremarkable. No cardiomegaly. No pericardial effusion. Mediastinal space: No mediastinal hematoma. No pneumomediastinum. Pulmonary arteries: Evaluation of peripheral pulmonary arteries is limited secondary to the phase of contrast enhancement. No filling defects in the central pulmonary arteries to suggest a large pulmonary embolism. Aorta: No evidence for aortic aneurysm or aortic dissection. Mild atherosclerotic changes in the visualized arteries. Lymph nodes: No lymphadenopathy. Liver: The visualized liver is unremarkable. Gallbladder and bile ducts: The visualized gallbladder is unremarkable. Pancreas: The visualized pancreas is unremarkable. No pancreatic ductal dilatation. Spleen: The visualized spleen is unremarkable. Adrenals: Indeterminate focus in the right adrenal gland. Hounsfield units show density greater than expected for an adenoma. This measures 1.8 x 2.2 cm (series 6, image 88), stable compared with 11/16/2019. The visualized left adrenal gland is unremarkable. Kidneys and ureters: The visualized left kidney is unremarkable. Bones/joints: Multilevel degenerative changes of varying severity in the visualized spine. Soft tissues: No acute abnormality in the extrathoracic soft tissues. IMPRESSION: 1. Evaluation of peripheral pulmonary arteries is limited secondary to the phase of contrast enhancement. No filling defects in the central pulmonary arteries to suggest a large pulmonary embolism. 2. Lungs are clear bilaterally. 3. Stable indeterminate focus in the right adrenal gland compared with 11/16/2019. Continued follow-up until stability for a minimum of 1 year is established is recommended. 4. Incidental/nonacute findings are listed in the report. COMMENTS: Consistent with the [employer]'s Incidental Findings Committee white paper ([employer] Sunday [employer]iol 2017): Any incidental adrenal lesion less than or equal to 1 cm is likely benign. No follow-up imaging is recommended for these lesions per consensus recommendations based on imaging criteria. Further lab evaluation could be pursued if warranted based on clinical findings.
== END 2020-08-31 22:20 | disposition home or self-care (01) ==
LOC: DL.ED 18:05
DX: L03.116 Cellulitis of left lower limb (principal); R06.02 Shortness of breath; R79.1 Abnormal coagulation profile; R60.0 Localized edema; I10 Essential (primary) hypertension; J45.909 Unspecified asthma, uncomplicated; M19.90 Unspecified osteoarthritis, unspecified site; E66.9 Obesity, unspecified; Z68.43 Body mass index [BMI] 50.0-59.9, adult; Z88.0 Allergy status to penicillin; Z88.5 Allergy status to narcotic agent; Z88.8 Allergy status to other drugs, medicaments and biological substances; Z79.899 Other long term (current) drug therapy; Z20.828 Contact with and (suspected) exposure to other viral communicable diseases
CPT/HCPCS: 36415; 71260; 71275; 80053; 80305-QW; 81001; 82150; 83605; 83690; 83735; 83880; 84484; 85025; 85379; 85610; 87040; 93005; 93970; 99285-25; A9270-GY; J3490; Q9967; U0002

== ENCOUNTER 2023-03-18 15:50 | Emergency (ER) | payer SELFPAY ==
[2023-03-18 16:26] LABS: BASOPHILS PERCENT AUTO 0.3 % (0.0-1.0); EOSINOPHILS PERCENT AUTO 2.3 % (1.0-3.0); HEMATOCRIT 41.9 % (37.0-47.0); HEMOGLOBIN 12.7 g/dL (12.0-16.0); LYMPHOCYTES PERCENT AUTO 15.6 % (20.5-50.1); MEAN CORPUSCULAR HGB CONC 30.3 g/dL (33.0-35.0); MEAN CORPUSCULAR VOLUME 79.1 fL (80-100); MONOCYTES PERCENT AUTO 5.7 % (2-8); NEUTROPHILS PERCENT AUTO 76.1 % (42.2-75.2); PLATELET COUNT,PLT 418 10^3/uL (150-450); WHITE BLOOD CELL COUNT,WBC 14.8 10^3/uL (5.0-10.0)
[2023-03-18 16:30] VITALS: BP 144/98
[2023-03-18 16:34] LABS: PROTHROMBIN TIME 9.9 SEC (9.0-12.0); PTT,PARTIAL THROMBOPLSTIN TIME 26.6 SEC (22.0-34.0)
[2023-03-18] MEDS: Albuterol/Ipratropium 3.0-0.5 MG/3 ML Neb Soln NEB ONE (16:35)
[2023-03-18 16:40] LABS: LACTIC ACID 0.9 mmol/L (0.4-2.0)
[2023-03-18 16:46] LABS: A/G RATIO 0.58; ALANINE AMINOTRANSFERASE,ALT 22 U/L (14-59); ALBUMIN 3.2 g/dL (3.4-5.0); ALKALINE PHOSPHATASE 113 U/L (46-116); ASPARTATE AMNIOTRANSFERASE,AST 31 U/L (15-37); BILIRUBIN TOTAL 0.4 mg/dL (0.2-1.0); BLOOD UREA NITROGEN,BUN 19 mg/dL (7-18); BUN/CREATININE RATIO 24.7 (No establ ref range); C-REACTIVE PROTEIN 9.9 mg/dL (0.0-0.9); CALCIUM 8.2 mg/dL (8.5-10.1); CARBON DIOXIDE,CO2 31 mmol/L (21-32); CHLORIDE,CL 98 mmol/L (98-107); CREATININE 0.77 mg/dL (0.55-1.02); EST CRCL DRUG DOSING (CG) 74.64 mL/min; ESTIMATED GFR 93 mL/min (>=60); ETHANOL BLOOD MEDICAL < 3 mg/dL (0); GLUCOSE RANDOM 109 mg/dL (70-99); LIPASE 25 U/L (73-393); MAGNESIUM 2.1 mg/dL (1.8-2.4); PROTEIN TOTAL,TP 8.7 g/dL (6.4-8.2); SODIUM,NA 136 mmol/L (136-145); TSH ULTRASENSITIVE 0.91 uIU/mL (0.36-3.74)
[2023-03-18 16:49] LABS: B-TYPE NATRIURETIC PEPTIDE,BNP 40 pg/ml (0-100)
[2023-03-18 16:50] VITALS: PULSE 102
[2023-03-18 17:22] LABS: AMPHETAMINES,URINE POSITIVE (NEGATIVE); BARBITURATES,URINE NEGATIVE (NEGATIVE); BENZODIAZEPINE,URINE POSITIVE (NEGATIVE); MDMA (ECSTASY), URINE NEGATIVE (NEGATIVE); METHADONE,URINE NEGATIVE (NEGATIVE); METHAMPHETAMINES,URINE POSITIVE (NEGATIVE); OPIATES,URINE NEGATIVE (NEGATIVE); OXYCODONE,URINE NEGATIVE (NEGATIVE); PHENCYCLIDINE,URINE NEGATIVE (NEGATIVE); TCA,URINE NEGATIVE (NEGATIVE)
[2023-03-18] MEDS: Azithromycin 250 MG Tab PO ONE (17:57)
[2023-03-18] MEDS: predniSONE 20 MG Tab PO ONE (17:57)
== END 2023-03-18 18:10 | disposition home or self-care (01) ==
LOC: DL.ED 15:50
DX: J44.1 Chronic obstructive pulmonary disease with (acute) exacerbation (principal); F15.10 Other stimulant abuse, uncomplicated; I10 Essential (primary) hypertension; J45.909 Unspecified asthma, uncomplicated; E66.9 Obesity, unspecified; Z68.42 Body mass index [BMI] 45.0-49.9, adult; Z88.0 Allergy status to penicillin; Z88.5 Allergy status to narcotic agent; Z88.8 Allergy status to other drugs, medicaments and biological substances; Z20.822 Contact with and (suspected) exposure to COVID-19
CPT/HCPCS: 36415; 71045; 80053; 80305; 80307; 83605; 83690; 83735; 83880; 84443; 84484; 85025; 85379; 85610; 85730; 86140; 87635; 93005; 93010; 94640; 99283; 99285; A9270; J7512; J7620-GY; U0002

== ENCOUNTER 2023-06-11 19:17 | Emergency (ER) | payer MEDICAID, OTHER ==
[2023-06-11 20:18] VITALS: BP 165/98; PULSE 100
[2023-06-11] MEDS ORDERED: Sodium Chloride 0.9% 10 ML Syringe FLUSH PRN (21:57)
[2023-06-11 22:05] LABS: BASOPHILS PERCENT AUTO 0.5 % (0.0-1.0); EOSINOPHILS PERCENT AUTO 2.8 % (1.0-3.0); HEMATOCRIT 43.6 % (37.0-47.0); HEMOGLOBIN 13.4 g/dL (12.0-16.0); LYMPHOCYTES PERCENT AUTO 14.5 % (20.5-50.1); MEAN CORPUSCULAR HEMOGLOBIN 23.9 pg (27.0-34.0); MEAN CORPUSCULAR HGB CONC 30.7 g/dL (33.0-35.0); MEAN CORPUSCULAR VOLUME 77.9 fL (80-100); MONOCYTES PERCENT AUTO 5.1 % (2-8); NEUTROPHILS PERCENT AUTO 77.1 % (42.2-75.2); PLATELET COUNT,PLT 386 10^3/uL (150-450); WHITE BLOOD CELL COUNT,WBC 12.8 10^3/uL (5.0-10.0)
[2023-06-11 22:12] LABS: A/G RATIO 0.7; ALBUMIN 3.4 g/dL (3.4-5.0); ANION GAP 10.7 mEq/L (7-13); BILIRUBIN TOTAL 0.3 mg/dL (0.2-1.0); BUN/CREATININE RATIO 22.6 (No establ ref range); CALCIUM 8.9 mg/dL (8.5-10.1); CREATININE 0.84 mg/dL (0.55-1.02); EST CRCL DRUG DOSING (CG) 68.42 mL/min; MAGNESIUM 1.9 mg/dL (1.8-2.4); POTASSIUM,K 3.7 mmol/L (3.5-5.1); PROTEIN TOTAL,TP 8.4 g/dL (6.4-8.2)
[2023-06-11] MEDS ORDERED: Sulfamethoxazole/Trimethoprim 800-160 MG Tab PO ONE (22:19)
[2023-06-11 22:41] LABS: LACTIC ACID 0.8 mmol/L (0.4-2.0)
== END 2023-06-11 22:47 | disposition home or self-care (01) ==
LOC: DL.ED 19:17
DX: L03.116 Cellulitis of left lower limb (principal); I83.022 Varicose veins of left lower extremity with ulcer of calf; L97.221 Non-pressure chronic ulcer of left calf limited to breakdown of skin; F17.210 Nicotine dependence, cigarettes, uncomplicated; I10 Essential (primary) hypertension; E66.9 Obesity, unspecified; Z86.16 Personal history of COVID-19; Z79.899 Other long term (current) drug therapy; Z88.1 Allergy status to other antibiotic agents; Z88.5 Allergy status to narcotic agent; Z88.8 Allergy status to other drugs, medicaments and biological substances; Z68.42 Body mass index [BMI] 45.0-49.9, adult
CPT/HCPCS: 36415; 80053; 83605; 83735; 85025; 99283; A9270-GY; J3490

== ENCOUNTER 2023-10-03 18:11 | Emergency (ER) | payer MEDICAID ==
[2023-10-03] MEDS ORDERED: methylPREDNISolone Sodium Succinate 125 MG/2 ML SDV IVPUSH ONE (18:46)
[2023-10-03] MEDS ORDERED: Sodium Chloride 0.9% 10 ML Syringe FLUSH PRN (18:46)
[2023-10-03 19:04] LABS: BASOPHILS PERCENT AUTO 0.3 % (0.0-1.0); EOSINOPHILS PERCENT AUTO 3.3 % (1.0-3.0); HEMATOCRIT 43.8 % (37.0-47.0); LYMPHOCYTES PERCENT AUTO 14.6 % (20.5-50.1); MEAN CORPUSCULAR HEMOGLOBIN 24.1 pg (27.0-34.0); MEAN CORPUSCULAR HGB CONC 29.7 g/dL (33.0-35.0); MEAN CORPUSCULAR VOLUME 81.3 fL (80-100); MONOCYTES PERCENT AUTO 5.6 % (2-8); NEUTROPHILS PERCENT AUTO 76.2 % (42.2-75.2); PLATELET COUNT,PLT 383 10^3/uL (150-450); RED BLOOD CELL COUNT 5.39 10^6/uL (4.2-5.4); WHITE BLOOD CELL COUNT,WBC 11.1 10^3/uL (5.0-10.0)
[2023-10-03 19:08] VITALS: BP 150/98; PULSE 110
[2023-10-03 19:25] LABS: ANION GAP 8.6 mEq/L (7-13); BILIRUBIN TOTAL 0.2 mg/dL (0.2-1.0); BUN/CREATININE RATIO 23.6 (No establ ref range); CALCIUM 8.4 mg/dL (8.5-10.1); CREATININE 0.89 mg/dL (0.55-1.02); EST CRCL DRUG DOSING (CG) 64.58 mL/min; POTASSIUM,K 4.6 mmol/L (3.5-5.1); PROTEIN TOTAL,TP 7.3 g/dL (6.4-8.2)
[2023-10-03 19:26] LABS: A/G RATIO 0.7
== END 2023-10-03 21:05 | disposition home or self-care (01) ==
LOC: DL.ED 18:11
DX: J44.1 Chronic obstructive pulmonary disease with (acute) exacerbation (principal); I10 Essential (primary) hypertension; E66.9 Obesity, unspecified; Z68.42 Body mass index [BMI] 45.0-49.9, adult; Z86.16 Personal history of COVID-19; Z88.0 Allergy status to penicillin; Z88.5 Allergy status to narcotic agent; Z88.8 Allergy status to other drugs, medicaments and biological substances
CPT/HCPCS: 36415; 71046; 80053; 83880; 85025; 96374; 99283-25; 99284; J2930; J3490

== ENCOUNTER 2023-11-01 18:14 | Emergency (ER) | payer MEDICAID ==
[2023-11-01 18:32] VITALS: BP 172/86
[2023-11-01] MEDS: Albuterol/Ipratropium 3.0-0.5 MG/3 ML Neb Soln NEB ONE ×2 (18:48→19:48)
[2023-11-01] MEDS: methylPREDNISolone Sodium Succinate 125 MG/2 ML SDV IVPUSH ONE (18:48)
[2023-11-01] MEDS: Sodium Chloride 0.9% 10 ML Syringe FLUSH PRN (18:51)
[2023-11-01 18:53] LABS: BASOPHILS PERCENT AUTO 0.2 % (0.0-1.0); HEMATOCRIT 44.1 % (37.0-47.0); HEMOGLOBIN 13.2 g/dL (12.0-16.0); LYMPHOCYTES PERCENT AUTO 13.7 % (20.5-50.1); MEAN CORPUSCULAR HEMOGLOBIN 24.2 pg (27.0-34.0); MEAN CORPUSCULAR HGB CONC 29.9 g/dL (33.0-35.0); MEAN CORPUSCULAR VOLUME 80.9 fL (80-100); NEUTROPHILS PERCENT AUTO 79.1 % (42.2-75.2); PLATELET COUNT,PLT 345 10^3/uL (150-450); RED BLOOD CELL COUNT 5.45 10^6/uL (4.2-5.4); WHITE BLOOD CELL COUNT,WBC 11.7 10^3/uL (5.0-10.0)
[2023-11-01 19:12] LABS: PROTHROMBIN TIME 9.9 SEC (9.0-12.0); PTT,PARTIAL THROMBOPLSTIN TIME 24.8 SEC (22.0-34.0)
[2023-11-01 19:13] LABS: ALANINE AMINOTRANSFERASE,ALT 27 U/L (14-59); ALBUMIN 3.2 g/dL (3.4-5.0); ALKALINE PHOSPHATASE 112 U/L (46-116); ANION GAP 8.1 mEq/L (7-13); ASPARTATE AMNIOTRANSFERASE,AST 12 U/L (15-37); BILIRUBIN TOTAL 0.2 mg/dL (0.2-1.0); BLOOD UREA NITROGEN,BUN 20 mg/dL (7-18); BUN/CREATININE RATIO 19.4 (No establ ref range); C-REACTIVE PROTEIN 1.25 ng/dL (<=0.50); CALCIUM 8.1 mg/dL (8.5-10.1); CARBON DIOXIDE,CO2 35 mmol/L (21-32); CHLORIDE,CL 102 mmol/L (98-107); CREATININE 1.03 mg/dL (0.55-1.02); EST CRCL DRUG DOSING (CG) 51.11 mL/min; GLUCOSE RANDOM 128 mg/dL (70-99); MAGNESIUM 1.8 mg/dL (1.8-2.4); POTASSIUM,K 4.1 mmol/L (3.5-5.1); PROTEIN TOTAL,TP 7.3 g/dL (6.4-8.2); SODIUM,NA 141 mmol/L (136-145)
[2023-11-01 19:16] LABS: LACTIC ACID 1.1 mmol/L (0.4-2.0)
[2023-11-01 19:17] LABS: A/G RATIO 0.78; ESTIMATED GFR 66 mL/min (>=60)
[2023-11-01 19:33] LABS: CORONAVIRUS COVID-19 NAA NEGATIVE (NEGATIVE); INFLUENZA A NAA NEGATIVE (NEGATIVE); INFLUENZA B NAA NEGATIVE (NEGATIVE); RESPIRATORY SYNCYTIAL VIR NAA NEGATIVE (NEGATIVE)
[2023-11-01 19:51] VITALS: PULSE 106
== END 2023-11-01 21:00 | disposition left against medical advice (07) ==
LOC: DL.ED 18:14
DX: R06.2 Wheezing (principal); I10 Essential (primary) hypertension; E66.9 Obesity, unspecified; Z86.16 Personal history of COVID-19; Z90.710 Acquired absence of both cervix and uterus; Z79.899 Other long term (current) drug therapy; F17.210 Nicotine dependence, cigarettes, uncomplicated; Z88.0 Allergy status to penicillin; Z88.5 Allergy status to narcotic agent; Z88.8 Allergy status to other drugs, medicaments and biological substances; Z68.43 Body mass index [BMI] 50.0-59.9, adult
CPT/HCPCS: 0241U; 36415; 71045; 80053; 83605; 83735; 84145; 85025; 85610; 85730; 86140; 87040; 94640; 96374; 99285; J2930; J3490; J7620-GY

== ENCOUNTER 2023-12-28 16:26 | Emergency (ER) | payer MEDICAID ==
[2023-12-28 16:41] VITALS: BP 180/99; PULSE 110
[2023-12-28] MEDS ORDERED: Sodium Chloride 0.9% 10 ML Syringe FLUSH PRN (16:54)
[2023-12-28] MEDS: Furosemide 40 MG/4 ML VIAL IVPUSH ONE (17:35)
== END 2023-12-28 17:36 | disposition home or self-care (01) ==
LOC: DL.ED 16:26
DX: R60.0 Localized edema (principal); I11.0 Hypertensive heart disease with heart failure; I50.9 Heart failure, unspecified; E11.9 Type 2 diabetes mellitus without complications; J45.909 Unspecified asthma, uncomplicated; Z88.0 Allergy status to penicillin; Z88.5 Allergy status to narcotic agent; Z88.8 Allergy status to other drugs, medicaments and biological substances; Z79.51 Long term (current) use of inhaled steroids; Z79.84 Long term (current) use of oral hypoglycemic drugs; Z79.899 Other long term (current) drug therapy; Z86.16 Personal history of COVID-19; Z90.710 Acquired absence of both cervix and uterus
CPT/HCPCS: 96374; 99283-25; 99284; J1940

== ENCOUNTER 2024-01-18 15:58 | Emergency (ER) | payer MEDICAID ==
[2024-01-18] MEDS ORDERED: Sodium Chloride 0.9% 10 ML Syringe FLUSH PRN (16:13)
[2024-01-18 16:31] LABS: BASOPHILS PERCENT AUTO 0.3 % (0.0-1.0); EOSINOPHILS PERCENT AUTO 1.9 % (1.0-3.0); HEMATOCRIT 43.7 % (37.0-47.0); HEMOGLOBIN 13.5 g/dL (12.0-16.0); LYMPHOCYTES PERCENT AUTO 14.3 % (20.5-50.1); MEAN CORPUSCULAR HGB CONC 30.9 g/dL (33.0-35.0); MEAN CORPUSCULAR VOLUME 81.1 fL (80-100); MONOCYTES PERCENT AUTO 4.3 % (2-8); NEUTROPHILS PERCENT AUTO 79.2 % (42.2-75.2); PLATELET COUNT,PLT 423 10^3/uL (150-450); RED BLOOD CELL COUNT 5.39 10^6/uL (4.2-5.4); WHITE BLOOD CELL COUNT,WBC 14.1 10^3/uL (5.0-10.0)
[2024-01-18] MEDS: Ondansetron 4 MG/2 ML SDV IVPUSH ONE (16:32)
[2024-01-18] MEDS: HYDROmorphone 0.5 MG/0.5 ML Syringe IVPUSH ONE (16:33)
[2024-01-18] MEDS: Acetaminophen 500 MG Tab PO ONE (16:34)
[2024-01-18 16:47] VITALS: BP 175/89; PULSE 117
[2024-01-18 16:51] LABS: ALBUMIN 3.1 g/dL (3.4-5.0); ANION GAP 13.8 mEq/L (7-13); BILIRUBIN TOTAL 0.2 mg/dL (0.2-1.0); C-REACTIVE PROTEIN 2.51 ng/dL (<=0.50); CALCIUM 8.8 mg/dL (8.5-10.1); CREATININE 0.91 mg/dL (0.55-1.02); EST CRCL DRUG DOSING (CG) 62.45 mL/min; POTASSIUM,K 3.8 mmol/L (3.5-5.1); PROTEIN TOTAL,TP 7.6 g/dL (6.4-8.2)
[2024-01-18 16:52] LABS: A/G RATIO 0.69
[2024-01-18 16:54] LABS: LACTIC ACID 1.9 mmol/L (0.4-2.0)
[2024-01-18] MEDS: Vancomycin 2 GM in Sodium Chloride 0.9% 500 ML IV ONE (17:04)
[2024-01-18] MEDS: Iopamidol 755 Mg/ML 100 ML Bottle IVPUSH ONE (17:28)
[2024-01-18] MEDS: Ketorolac 30 MG/ML SDV IVPUSH ONE (17:33)
== END 2024-01-18 20:37 | disposition home or self-care (01) ==
LOC: DL.ED 15:58
DX: L03.116 Cellulitis of left lower limb (principal); I11.0 Hypertensive heart disease with heart failure; I50.9 Heart failure, unspecified; E11.9 Type 2 diabetes mellitus without complications; E66.9 Obesity, unspecified; Z86.16 Personal history of COVID-19; Z79.84 Long term (current) use of oral hypoglycemic drugs; Z79.899 Other long term (current) drug therapy; Z88.0 Allergy status to penicillin; Z88.8 Allergy status to other drugs, medicaments and biological substances; Z90.710 Acquired absence of both cervix and uterus; Z68.43 Body mass index [BMI] 50.0-59.9, adult
CPT/HCPCS: 36415; 71275; 80053; 83605; 85025; 86140; 87040; 93005; 93971; 96365; 96366; 96375; 99285; A9270; J1170; J1885; J2405; J3370; J7040; Q9967; 93010; 99284

== ENCOUNTER 2024-01-30 21:01 | Observation (INO) | payer MEDICAID ==
[2024-01-30 22:28] LABS: BASOPHILS PERCENT AUTO 0.2 % (0.0-1.0); EOSINOPHILS PERCENT AUTO 3.6 % (1.0-3.0); HEMOGLOBIN 12.8 g/dL (12.0-16.0); LYMPHOCYTES PERCENT AUTO 16.3 % (20.5-50.1); MEAN CORPUSCULAR HEMOGLOBIN 24.9 pg (27.0-34.0); MEAN CORPUSCULAR HGB CONC 29.8 g/dL (33.0-35.0); MEAN CORPUSCULAR VOLUME 83.5 fL (80-100); MONOCYTES PERCENT AUTO 7.5 % (2-8); NEUTROPHILS PERCENT AUTO 72.4 % (42.2-75.2); PLATELET COUNT,PLT 362 10^3/uL (150-450); RED BLOOD CELL COUNT 5.15 10^6/uL (4.2-5.4); WHITE BLOOD CELL COUNT,WBC 10.4 10^3/uL (5.0-10.0)
[2024-01-30] MEDS: cefTRIAXone 2 GM Vial IVPUSH ONE (22:36)
[2024-01-30] MEDS: Albuterol/Ipratropium 3.0-0.5 MG/3 ML Neb Soln NEB ONE (22:36)
[2024-01-30] MEDS: Acetaminophen 500 MG Tab PO ONE (22:37)
[2024-01-30 22:48] LABS: ALBUMIN 2.9 g/dL (3.4-5.0); ANION GAP 5.7 mEq/L (7-13); BILIRUBIN TOTAL 0.2 mg/dL (0.2-1.0); BUN/CREATININE RATIO 24.3 (No establ ref range); CALCIUM 7.7 mg/dL (8.5-10.1); CREATININE 1.07 mg/dL (0.55-1.02); EST CRCL DRUG DOSING (CG) 53.11 mL/min; LACTIC ACID 0.6 mmol/L (0.4-2.0); MAGNESIUM 1.7 mg/dL (1.8-2.4); POTASSIUM,K 3.7 mmol/L (3.5-5.1); PROTEIN TOTAL,TP 7.1 g/dL (6.4-8.2)
[2024-01-30 23:00] LABS: A/G RATIO 0.69
[2024-01-30 23:29] LABS: APPEARANCE,URINE CLEAR (CLEAR); BILIRUBIN,URINE NEGATIVE (NEGATIVE); COLOR,URINE YELLOW (YELLOW); GLUCOSE,URINE NEGATIVE (NEGATIVE); KETONES,URINE NEGATIVE (NEGATIVE); LEUKOCYTE ESTERASE,URINE NEGATIVE (NEGATIVE); NITRITE,URINE NEGATIVE (NEGATIVE); OCCULT BLOOD,URINE NEGATIVE (NEGATIVE); PROTEIN,URINE 30 (NEGATIVE); UROBILINOGEN,URINE 0.2 mg/dL (0.2-1.0)
[2024-01-30 23:30] LABS: AMPHETAMINES,URINE POSITIVE (NEGATIVE); BARBITURATES,URINE NEGATIVE (NEGATIVE); BENZODIAZEPINE,URINE NEGATIVE (NEGATIVE); MDMA (ECSTASY), URINE POSITIVE (NEGATIVE); METHADONE,URINE NEGATIVE (NEGATIVE); METHAMPHETAMINES,URINE POSITIVE (NEGATIVE); OPIATES,URINE POSITIVE (NEGATIVE); OXYCODONE,URINE NEGATIVE (NEGATIVE); PHENCYCLIDINE,URINE NEGATIVE (NEGATIVE); TCA,URINE NEGATIVE (NEGATIVE)
[2024-01-30 23:37] LABS: BACTERIA,URINE FEW /HPF (0-FEW/HPF); EPITHELIAL CELLS,URINE FEW /HPF (NOT SEEN); RBC,URINE 0-5 /HPF (0-5); WBC,URINE 0-5 /HPF (0-5/HPF)
[2024-01-31 00:25] LABS: O2 DELIVERY DEVICE NASAL CANNULA
[2024-01-31] MEDS ORDERED: Metoprolol Tartrate 5 MG/5 ML SDV IVPUSH PRN (00:35)
[2024-01-31] MEDS ORDERED: Polyethylene Glycol 3350 Powder 17 GM Packet PO PRN (00:36)
[2024-01-31] MEDS ORDERED: Ondansetron 4 MG/2 ML SDV IVPUSH PRN (00:36)
[2024-01-31] MEDS ORDERED: Sennosides/Docusate Sodium 50-8.6 MG Tab PO PRN (00:36)
[2024-01-31] MEDS ORDERED: Zolpidem 5 MG Tab PO PRN (00:36)
[2024-01-31] MEDS ORDERED: Magnesium Hydroxide 400 MG/5 ML Susp 30 ML Cup PO PRN (00:36)
[2024-01-31] MEDS ORDERED: guaiFENesin/Dextromethorphan 100-10 MG/5 ML Soln 5 ML Cup PO PRN (00:41)
[2024-01-31] MEDS ORDERED: Non-Formulary Medication 1 Each (Fluticasone Propion/Salmeterol [Fluticasone-Salmeterol 25 INH PRN (00:41)
[2024-01-31 00:43] LABS: BASE EXCESS VENOUS 8.3 mmol/l ((-2)-(+3)); BICARBONATE,VENOUS 39 mmol/l (19-25); O2 SATURATION VENOUS 74.9 % (60-80); PH,VENOUS 7.26 (7.31-7.41); PO2 VENOUS 49 mmHg (35-42)
[2024-01-31] MEDS ORDERED: Glucagon,Human Recombinant 1 MG Vial IM PRN (00:44)
[2024-01-31] MEDS ORDERED: 50% Dextrose in Water 50 ML Syringe IVPUSH PRN (00:44)
[2024-01-31 00:46] LABS: PCO2 VENOUS 90 mmHg (41-51)
[2024-01-31] MEDS: HYDROmorphone 0.5 MG/0.5 ML Syringe IVPUSH PRN (01:09)
[2024-01-31] MEDS: Azithromycin 500 MG in Sodium Chloride 0.9% 250 ML IV ONE (01:26)
[2024-01-31] MEDS: methylPREDNISolone Sodium Succinate 125 MG/2 ML SDV IVPUSH SCH (01:27)
[2024-01-31] MEDS: MVI, Adult with Vitamin K 10 ML, Folic Acid 1 MG, Thiamine 100 MG in Lactated Ringers 1... IV ONE (01:34)
[2024-01-31] MEDS: Magnesium Sulfate/Water 2 GM in Premix Bag 1 BAG IV ONE (01:35)
[2024-01-31] MEDS: cloNIDine 0.1 MG Tab PO ONE (03:38)
[2024-01-31] MEDS: Albuterol/Ipratropium 3.0-0.5 MG/3 ML Neb Soln NEB SCH (05:42)
[2024-01-31 06:55] LABS: HEMATOCRIT 50.5 % (37.0-47.0); HEMOGLOBIN 14.6 g/dL (12.0-16.0); MEAN CORPUSCULAR HEMOGLOBIN 24.9 pg (27.0-34.0); MEAN CORPUSCULAR HGB CONC 28.9 g/dL (33.0-35.0); MEAN CORPUSCULAR VOLUME 86.2 fL (80-100); PLATELET COUNT,PLT 447 10^3/uL (150-450); RED BLOOD CELL COUNT 5.86 10^6/uL (4.2-5.4); WHITE BLOOD CELL COUNT,WBC 14.8 10^3/uL (5.0-10.0)
[2024-01-31 07:03] LABS: BASOPHILS PERCENT AUTO 0.1 % (0.0-1.0); EOSINOPHILS PERCENT AUTO 0.9 % (1.0-3.0); LYMPHOCYTES PERCENT AUTO 10.1 % (20.5-50.1); MONOCYTES PERCENT AUTO 1.6 % (2-8); NEUTROPHILS PERCENT AUTO 87.3 % (42.2-75.2)
[2024-01-31 07:12] LABS: A/G RATIO 0.7; ALBUMIN 3.5 g/dL (3.4-5.0); ANION GAP 11.2 mEq/L (7-13); BILIRUBIN TOTAL 0.2 mg/dL (0.2-1.0); BUN/CREATININE RATIO 25.2 (No establ ref range); C-REACTIVE PROTEIN 4.9 ng/dL (<=0.50); CALCIUM 8.1 mg/dL (8.5-10.1); CREATININE 1.11 mg/dL (0.55-1.02); EST CRCL DRUG DOSING (CG) 51.2 mL/min; MAGNESIUM 2.7 mg/dL (1.8-2.4); POTASSIUM,K 5.2 mmol/L (3.5-5.1); PROTEIN TOTAL,TP 8.6 g/dL (6.4-8.2)
[2024-01-31] MEDS ORDERED: HYDROmorphone 1 MG/ML Syringe IVPUSH PRN ×2 (07:47→14:59)
[2024-01-31] MEDS: Naloxone 2 MG/2 ML Syringe IVPUSH PRN (07:50)
[2024-01-31 07:57] LABS: BAND PERCENT MAN 2 %; LYMPHOCYTES PERCENT MAN 15 % (20-50); MONOCYTES PERCENT MAN 2 % (2-8); SEG NEUTROPHILS PERCENT MAN 79 % (42-75)
[2024-01-31 08:25] LABS: O2 DELIVERY DEVICE BIPAP
[2024-01-31 08:31] LABS: BASE EXCESS VENOUS -0.2 mmol/l ((-2)-(+3)); BICARBONATE,VENOUS 35 mmol/l (19-25); O2 SATURATION VENOUS 99.4 % (60-80); PO2 VENOUS 203 mmHg (35-42)
[2024-01-31 08:39] LABS: PH,VENOUS 7.08 (7.31-7.41)
[2024-01-31 08:40] LABS: PCO2 VENOUS 126 mmHg (41-51)
[2024-01-31] MEDS ORDERED: Modafinil 100 MG Tab PO SCH (09:00)
[2024-01-31] MEDS: Aminophylline 500 MG in Sodium Chloride 0.9% 500 ML IV SCH (09:24)
[2024-01-31] MEDS: Enoxaparin 40 MG/0.4 ML Syringe SUBCUT SCH (09:50)
[2024-01-31] MEDS: cefTRIAXone 2 GM Vial IVPUSH SCH (09:55)
[2024-01-31] MEDS: Modafinil 100 MG Tab PO SCH (09:55)
[2024-01-31] MEDS: Saccharomyces Boulardii (Probiotic) 250 MG Cap PO SCH (09:56)
[2024-01-31] MEDS: guaiFENesin 600 MG Tab.ER PO SCH (09:56)
[2024-01-31] MEDS: cloNIDine 0.1 MG Tab PO SCH (09:57)
[2024-01-31] MEDS: Bacitracin/Neomycin/Polymyxin B Oint 28.4 GM Tube TOP SCH (09:59)
[2024-01-31] MEDS: Caffeine Citrated (ORAL SOLUTION) 60 MG/3 ML ONE (11:15)
[2024-01-31] MEDS: Formoterol/Mometasone 200-5 MCG 8.8 GM Inhaler INH SCH (12:12)
[2024-01-31] MEDS: Tiotropium Bromide 4 GM Inhalation Spray (2.5mcg/1 dose; 10 doses) INH SCH (12:13)
[2024-01-31] MEDS: Insulin Lispro 100 Units/ML 3 ML Vial SUBCUT SCH (12:13)
[2024-01-31] MEDS: Ketorolac 30 MG/ML SDV IVPUSH ONE (15:17)
[2024-01-31] MEDS: Acetaminophen/oxyCODONE 325-5 MG Tab PO PRN (15:18)
[2024-01-31 18:13] LABS: ANION GAP 6.4 mEq/L (7-13); BILIRUBIN TOTAL 0.2 mg/dL (0.2-1.0); BUN/CREATININE RATIO 27.8 (No establ ref range); CALCIUM 7.7 mg/dL (8.5-10.1); CREATININE 1.08 mg/dL (0.55-1.02); EST CRCL DRUG DOSING (CG) 52.62 mL/min; MAGNESIUM 2.2 mg/dL (1.8-2.4); POTASSIUM,K 4.4 mmol/L (3.5-5.1); PROTEIN TOTAL,TP 7.7 g/dL (6.4-8.2)
[2024-01-31 18:14] LABS: A/G RATIO 0.64
[2024-01-31] MEDS: Nicotine 21 MG/24 Hr Patch TRDERM ONE (20:18)
[2024-01-31] MEDS ORDERED: Melatonin 3 MG Tab PO PRN (20:26)
[2024-01-31] MEDS: Famotidine 20 MG/2 ML SDV IVPUSH SCH (20:57)
[2024-01-31] MEDS ORDERED: Check Patch TRDERM SCH (21:00)
[2024-01-31] MEDS: Ketorolac 30 MG/ML SDV IVPUSH PRN (22:46)
[2024-01-31] MEDS: Albuterol/Ipratropium 3.0-0.5 MG/3 ML Neb Soln NEB PRN (22:46)
[2024-02-01] MEDS: Acetaminophen 325 MG Tab PO PRN (04:59)
[2024-02-01 07:06] LABS: HEMATOCRIT 43.9 % (37.0-47.0); HEMOGLOBIN 12.3 g/dL (12.0-16.0); MEAN CORPUSCULAR HEMOGLOBIN 24.7 pg (27.0-34.0); MEAN CORPUSCULAR VOLUME 88.3 fL (80-100); PLATELET COUNT,PLT 384 10^3/uL (150-450); RED BLOOD CELL COUNT 4.97 10^6/uL (4.2-5.4); WHITE BLOOD CELL COUNT,WBC 14.5 10^3/uL (5.0-10.0)
[2024-02-01 07:22] LABS: A/G RATIO 0.66; ALBUMIN 2.9 g/dL (3.4-5.0); ANION GAP 8.4 mEq/L (7-13); BILIRUBIN TOTAL 0.2 mg/dL (0.2-1.0); C-REACTIVE PROTEIN 2.36 ng/dL (<=0.50); CALCIUM 7.9 mg/dL (8.5-10.1); CREATININE 1.07 mg/dL (0.55-1.02); EST CRCL DRUG DOSING (CG) 53.11 mL/min; MAGNESIUM 2.2 mg/dL (1.8-2.4); POTASSIUM,K 4.4 mmol/L (3.5-5.1); PROTEIN TOTAL,TP 7.3 g/dL (6.4-8.2)
[2024-02-01] MEDS ORDERED: Nicotine 21 MG/24 Hr Patch TRDERM SCH ×2 (09:00→16:00)
[2024-02-01] MEDS: diphenhydrAMINE 25 MG Tab PO ONE (09:19)
[2024-02-01] MEDS: Famotidine 20 MG Tab PO ONE ×2 (09:50→18:45)
[2024-02-01] MEDS: Ampicillin/Sulbactam Na 1.5 GM in Sodium Chloride 0.9% 100 ML IV ONE (10:09)
[2024-02-01] MEDS: Azithromycin 500 MG in Sodium Chloride 0.9% 250 ML IV SCH (11:02)
[2024-02-01] MEDS: Ampicillin/Sulbactam Na 1.5 GM in Sodium Chloride 0.9% 100 ML IV SCH (13:14)
[2024-02-01] MEDS: methylPREDNISolone Sodium Succinate 125 MG/2 ML SDV IVPUSH SCH (13:20)
[2024-02-01] MEDS: traMADol 50 MG Tab PO PRN (14:40)
[2024-02-01] MEDS: hydrALAZINE 20 MG/ML SDV IVPUSH PRN (20:32)
[2024-02-01] MEDS: hydrOXYzine HCl 25 MG Tab PO PRN (22:57)
[2024-02-02 00:16] VITALS: BP 151/73; PULSE 85
[2024-02-02] MEDS ORDERED: Famotidine 20 MG/2 ML SDV IVPUSH SCH (09:00)
== END 2024-02-02 01:21 | disposition left against medical advice (07) ==
LOC: DL.ED 21:01 → DL.MS 23:25
PROVIDERS: ADMIT Internal Medicine; ATTEND Internal Medicine
DX: E11.628 Type 2 diabetes mellitus with other skin complications (principal); L03.116 Cellulitis of left lower limb; E11.65 Type 2 diabetes mellitus with hyperglycemia; G93.41 Metabolic encephalopathy; J96.21 Acute and chronic respiratory failure with hypoxia; J96.22 Acute and chronic respiratory failure with hypercapnia; J44.1 Chronic obstructive pulmonary disease with (acute) exacerbation; E66.2 Morbid (severe) obesity with alveolar hypoventilation; E87.20 Acidosis, unspecified; D72.829 Elevated white blood cell count, unspecified; N17.9 Acute kidney failure, unspecified; E83.42 Hypomagnesemia; E88.09 Other disorders of plasma-protein metabolism, not elsewhere classified; F19.10 Other psychoactive substance abuse, uncomplicated; G89.4 Chronic pain syndrome; I10 Essential (primary) hypertension; R53.1 Weakness; R00.0 Tachycardia, unspecified; F32.A Depression, unspecified; F17.210 Nicotine dependence, cigarettes, uncomplicated; Z88.1 Allergy status to other antibiotic agents; Z88.5 Allergy status to narcotic agent; Z88.8 Allergy status to other drugs, medicaments and biological substances; Z79.899 Other long term (current) drug therapy; Z79.84 Long term (current) use of oral hypoglycemic drugs; Z68.43 Body mass index [BMI] 50.0-59.9, adult
CPT/HCPCS: 36415; 71045; 73590-LT; 80053; 80305-QW; 81001; 82803; 82947; 83605; 83735; 83880; 84484; 85025; 85379; 86140; 87040; 87070; 87186; 87205; 93005; 93010; 93970; 94010; 94060; 94640; 94667; 94760; 96365; 96366; 96367; 96368; 96372; 96374; 96375; 96376; 99285; 99285-25; A9270-GY; G0378; J0280; J0295; J0360; J0456; J0696; J0706; J1170; J1650; J1815-GY; J1885; J2310; J2930; J3411; J3475; J3490; J7040; J7050; J7120; J7620-GY

== ENCOUNTER 2024-05-10 05:24 | Emergency (ER) | payer MEDICAID ==
[2024-05-10 05:29] LABS: BASOPHILS PERCENT AUTO 0.2 % (0.0-1.0); EOSINOPHILS PERCENT AUTO 0.1 % (1.0-3.0); HEMATOCRIT 44.6 % (37.0-47.0); HEMOGLOBIN 13.7 g/dL (12.0-16.0); LYMPHOCYTES PERCENT AUTO 2.9 % (20.5-50.1); MEAN CORPUSCULAR HEMOGLOBIN 24.9 pg (27.0-34.0); MEAN CORPUSCULAR HGB CONC 30.7 g/dL (33.0-35.0); MEAN CORPUSCULAR VOLUME 80.9 fL (80-100); MONOCYTES PERCENT AUTO 1.8 % (2-8); PLATELET COUNT,PLT 374 10^3/uL (150-450); RED BLOOD CELL COUNT 5.51 10^6/uL (4.2-5.4); WHITE BLOOD CELL COUNT,WBC 29.3 10^3/uL (5.0-10.0)
[2024-05-10] MEDS: Sodium Chloride 0.9% 1,000 ML IV ONE (05:29)
[2024-05-10] MEDS: Acetaminophen 500 MG Tab PO ONE (05:31)
[2024-05-10] MEDS: Ketorolac 30 MG/ML SDV IVPUSH ONE (05:31)
[2024-05-10] MEDS: Piperacillin/Tazobactam 4.5 GM in Sodium Chloride 0.9% 100 ML IV ONE (05:42)
[2024-05-10 05:49] LABS: ALANINE AMINOTRANSFERASE,ALT 23 U/L (14-59); ALBUMIN 3.3 g/dL (3.4-5.0); ALKALINE PHOSPHATASE 112 U/L (46-116); ANION GAP 12.3 mEq/L (7-13); ASPARTATE AMNIOTRANSFERASE,AST 16 U/L (15-37); BILIRUBIN TOTAL 0.3 mg/dL (0.2-1.0); BLOOD UREA NITROGEN,BUN 21 mg/dL (7-18); C-REACTIVE PROTEIN 3.02 ng/dL (<=0.50); CALCIUM 8.8 mg/dL (8.5-10.1); CARBON DIOXIDE,CO2 29 mmol/L (21-32); CHLORIDE,CL 97 mmol/L (98-107); CREATININE 1.05 mg/dL (0.55-1.02); GLUCOSE RANDOM 108 mg/dL (70-99); MAGNESIUM 1.5 mg/dL (1.8-2.4); POTASSIUM,K 4.3 mmol/L (3.5-5.1); SODIUM,NA 134 mmol/L (136-145)
[2024-05-10 05:50] LABS: ESTIMATED GFR 64 mL/min (>=60)
[2024-05-10 05:55] LABS: LACTIC ACID 2.4 mmol/L (0.4-2.0)
[2024-05-10] MEDS: Vancomycin 2 GM in Sodium Chloride 0.9% 500 ML IV ONE (05:55)
[2024-05-10] MEDS: LORazepam 2 MG/ML SDV IVPUSH ONE (06:07)
[2024-05-10] MEDS: Sodium Chloride 0.9% 10 ML Syringe FLUSH PRN (06:28)
[2024-05-10 09:26] VITALS: BP 151/74; PULSE 108
[2024-05-10] MEDS: Morphine 4 MG/ML Syringe IVPUSH ONE (10:27)
[2024-05-10] MEDS: Morphine 4 MG/ML Syringe ONE (16:28)
== END 2024-05-10 10:25 ==
LOC: DL.ED 05:24
DX: A41.89 Other specified sepsis (principal); L03.116 Cellulitis of left lower limb; J18.9 Pneumonia, unspecified organism; I10 Essential (primary) hypertension; J44.9 Chronic obstructive pulmonary disease, unspecified; E66.9 Obesity, unspecified; Z90.710 Acquired absence of both cervix and uterus; Z79.84 Long term (current) use of oral hypoglycemic drugs; Z79.899 Other long term (current) drug therapy; Z88.5 Allergy status to narcotic agent; Z88.8 Allergy status to other drugs, medicaments and biological substances
CPT/HCPCS: 36415; 51702; 71045; 80053; 83605; 83735; 83880; 85025; 86140; 87040; 87077; 87635; 87804; 96365; 96366; 96367; 96375; 99285; A9270; J1885; J2060; J2270; J2543; J3370; J3490; J7030; J7040; U0002

== ENCOUNTER 2024-08-09 17:38 | Emergency (ER) | payer MEDICAID ==
[2024-08-09 18:25] LABS: BASOPHILS PERCENT AUTO 0.3 % (0.0-1.0); EOSINOPHILS PERCENT AUTO 2.5 % (1.0-3.0); HEMATOCRIT 43.5 % (37.0-47.0); HEMOGLOBIN 13.2 g/dL (12.0-16.0); LYMPHOCYTES PERCENT AUTO 16.2 % (20.5-50.1); MEAN CORPUSCULAR HEMOGLOBIN 25.2 pg (27.0-34.0); MEAN CORPUSCULAR HGB CONC 30.3 g/dL (33.0-35.0); MONOCYTES PERCENT AUTO 4.8 % (2-8); NEUTROPHILS PERCENT AUTO 76.2 % (42.2-75.2); PLATELET COUNT,PLT 488 10^3/uL (150-450); RED BLOOD CELL COUNT 5.24 10^6/uL (4.2-5.4); WHITE BLOOD CELL COUNT,WBC 13.6 10^3/uL (5.0-10.0)
[2024-08-09 18:47] LABS: ALANINE AMINOTRANSFERASE,ALT 18 U/L (14-59); ALKALINE PHOSPHATASE 113 U/L (46-116); ANION GAP 11.4 mEq/L (7-13); ASPARTATE AMNIOTRANSFERASE,AST 13 U/L (15-37); BILIRUBIN TOTAL 0.4 mg/dL (0.2-1.0); BLOOD UREA NITROGEN,BUN 19 mg/dL (7-18); BUN/CREATININE RATIO 14.1 (No establ ref range); CALCIUM 8.5 mg/dL (8.5-10.1); CARBON DIOXIDE,CO2 34 mmol/L (21-32); CHLORIDE,CL 93 mmol/L (98-107); CREATININE 1.35 mg/dL (0.55-1.02); EST CRCL DRUG DOSING (CG) 42.09 mL/min; GLUCOSE RANDOM 182 mg/dL (70-99); POTASSIUM,K 3.4 mmol/L (3.5-5.1); SODIUM,NA 135 mmol/L (136-145)
[2024-08-09 18:51] LABS: B-TYPE NATRIURETIC PEPTIDE,BNP 46 pg/ml (0-100)
[2024-08-09] MEDS: Bacitracin/Neomycin/Polymyxin B Oint 28.4 GM Tube TOP ONE (19:09)
[2024-08-09] MEDS: cefTRIAXone 1 GM Vial IVPUSH ONE (19:09)
[2024-08-09 19:11] LABS: A/G RATIO 0.43; ESTIMATED GFR 47 mL/min (>=60)
[2024-08-09 19:12] LABS: ETHANOL BLOOD MEDICAL < 3 mg/dL (0)
[2024-08-09 19:13] LABS: LACTIC ACID 3.6 mmol/L (0.4-2.0)
[2024-08-09] MEDS: Acetaminophen 325 MG Tab PO ONE (19:15)
[2024-08-09] MEDS: Sodium Chloride 0.9% 1,000 ML IV ONE (19:47)
[2024-08-09] MEDS: Potassium Chloride 10 MEQ Tab.ER PO ONE (19:48)
[2024-08-09 19:49] VITALS: BP 123/87; PULSE 89
[2024-08-09] MEDS: Take Home: Cephalexin 500 MG Cap, 6 Cap Pack PO ONE (21:14)
== END 2024-08-09 21:19 | disposition left against medical advice (07) ==
LOC: DL.ED 17:38
DX: A41.9 Sepsis, unspecified organism (principal); R65.20 Severe sepsis without septic shock; N17.9 Acute kidney failure, unspecified; J04.0 Acute laryngitis; L03.115 Cellulitis of right lower limb; L03.116 Cellulitis of left lower limb; J44.89 Other specified chronic obstructive pulmonary disease; E66.9 Obesity, unspecified; F17.210 Nicotine dependence, cigarettes, uncomplicated; Z86.16 Personal history of COVID-19; Z90.710 Acquired absence of both cervix and uterus; Z88.5 Allergy status to narcotic agent; Z88.8 Allergy status to other drugs, medicaments and biological substances; Z79.51 Long term (current) use of inhaled steroids; Z79.84 Long term (current) use of oral hypoglycemic drugs; Z79.899 Other long term (current) drug therapy; Z68.42 Body mass index [BMI] 45.0-49.9, adult
CPT/HCPCS: 36415; 71045; 80053; 80307; 83605; 83880; 84484; 85025; 87040; 87081; 87428; 87430; 93005; 96361; 96374; 99283; A9270; J0696; J7030

== ENCOUNTER 2024-08-10 18:46 | Inpatient (IN) | payer MEDICAID ==
[2024-08-10 21:58] LABS: BASOPHILS PERCENT AUTO 0.2 % (0.0-1.0); EOSINOPHILS PERCENT AUTO 2.8 % (1.0-3.0); HEMOGLOBIN 12.4 g/dL (12.0-16.0); LYMPHOCYTES PERCENT AUTO 17.4 % (20.5-50.1); MEAN CORPUSCULAR HEMOGLOBIN 25.4 pg (27.0-34.0); MEAN CORPUSCULAR HGB CONC 30.2 g/dL (33.0-35.0); MEAN CORPUSCULAR VOLUME 83.8 fL (80-100); NEUTROPHILS PERCENT AUTO 73.6 % (42.2-75.2); PLATELET COUNT,PLT 477 10^3/uL (150-450); RED BLOOD CELL COUNT 4.89 10^6/uL (4.2-5.4); WHITE BLOOD CELL COUNT,WBC 12.3 10^3/uL (5.0-10.0)
[2024-08-10 22:21] LABS: LACTIC ACID 1.3 mmol/L (0.4-2.0)
[2024-08-10 22:30] LABS: ALANINE AMINOTRANSFERASE,ALT 18 U/L (14-59); ALBUMIN 2.7 g/dL (3.4-5.0); ALKALINE PHOSPHATASE 112 U/L (46-116); ANION GAP 10.2 mEq/L (7-13); ASPARTATE AMNIOTRANSFERASE,AST 15 U/L (15-37); BILIRUBIN TOTAL 0.1 mg/dL (0.2-1.0); BLOOD UREA NITROGEN,BUN 29 mg/dL (7-18); BUN/CREATININE RATIO 17.1 (No establ ref range); C-REACTIVE PROTEIN 4.09 ng/dL (<=0.50); CALCIUM 8.3 mg/dL (8.5-10.1); CARBON DIOXIDE,CO2 32 mmol/L (21-32); CHLORIDE,CL 99 mmol/L (98-107); GLUCOSE RANDOM 115 mg/dL (70-99); MAGNESIUM 2.1 mg/dL (1.8-2.4); POTASSIUM,K 4.2 mmol/L (3.5-5.1); PROTEIN TOTAL,TP 9.3 g/dL (6.4-8.2); SODIUM,NA 137 mmol/L (136-145)
[2024-08-10 22:32] LABS: A/G RATIO 0.41; ESTIMATED GFR 36 mL/min (>=60)
[2024-08-10] MEDS: Cefepime 1 GM Vial IVPUSH ONE (23:03)
[2024-08-10] MEDS: VANCOmycin 1 GM in Sodium Chloride 0.9% 250 ML IV ONE (23:16)
[2024-08-10] MEDS: Bacitracin/Neomycin/Polymyxin B Oint 28.4 GM Tube TOP ONE (23:44)
[2024-08-10] MEDS ORDERED: Naloxone 2 MG/2 ML Syringe IVPUSH PRN (23:52)
[2024-08-10] MEDS ORDERED: hydrALAZINE 20 MG/ML SDV IVPUSH PRN (23:53)
[2024-08-10] MEDS ORDERED: Metoprolol Tartrate 5 MG/5 ML SDV IVPUSH PRN (23:53)
[2024-08-10] MEDS ORDERED: Albuterol/Ipratropium 3.0-0.5 MG/3 ML Neb Soln NEB PRN (23:54)
[2024-08-10] MEDS ORDERED: Ondansetron 4 MG/2 ML SDV IVPUSH PRN (23:54)
[2024-08-10] MEDS ORDERED: Polyethylene Glycol 3350 Powder 17 GM Packet PO PRN (23:54)
[2024-08-10] MEDS ORDERED: Magnesium Hydroxide 400 MG/5 ML Susp 30 ML Cup PO PRN (23:54)
[2024-08-10] MEDS ORDERED: Metoclopramide 10 MG/2 ML SDV IV PRN (23:54)
[2024-08-10] MEDS ORDERED: Sennosides/Docusate Sodium 50-8.6 MG Tab PO PRN (23:54)
[2024-08-10] MEDS ORDERED: HYDROmorphone 2 MG/ML Syringe IVPUSH PRN (23:54)
[2024-08-10 23:57] LABS: HEMOGLOBIN A1C 6.1 % (<5.7)
[2024-08-11 00:06] LABS: T4 FREE 1.23 ng/dL (0.76-1.46); TSH ULTRASENSITIVE 1.66 uIU/mL (0.36-3.74)
[2024-08-11] MEDS ORDERED: Diltiazem 25 MG/5 ML SDV IVPUSH PRN (00:19)
[2024-08-11] MEDS ORDERED: Enoxaparin 100 MG/1 ML Syringe SUBCUT ONE (00:21)
[2024-08-11] MEDS: HYDROmorphone 2 MG/ML Syringe IVPUSH ONE (01:00)
[2024-08-11] MEDS: Temazepam 15 MG Cap PO ONE (01:02)
[2024-08-11] MEDS: Dexamethasone 4 MG/ML SDV IVPUSH ONE (01:03)
[2024-08-11] MEDS: Lactated Ringers 1,500 ML IV ONE (01:03)
[2024-08-11] MEDS: diphenhydrAMINE 50 MG/ML SDV IVPUSH ONE (01:03)
[2024-08-11] MEDS: Enoxaparin 60 MG/0.6 ML Syringe SUBCUT ONE (01:05)
[2024-08-11] MEDS: Pantoprazole 40 MG Vial IVPUSH ONE (01:06)
[2024-08-11] MEDS: Lactated Ringers 1,000 ML IV ONE (02:51)
[2024-08-11] MEDS: Pantoprazole 40 MG Tab.CR PO SCH (06:09)
[2024-08-11] MEDS: Cefepime 1 GM Vial IVPUSH SCH (06:09)
[2024-08-11] MEDS: Lactated Ringers 1,500 ML IV SCH (06:14)
[2024-08-11 06:26] LABS: BASOPHILS PERCENT AUTO 0.2 % (0.0-1.0); EOSINOPHILS PERCENT AUTO 0.5 % (1.0-3.0); HEMATOCRIT 42.4 % (37.0-47.0); HEMOGLOBIN 12.6 g/dL (12.0-16.0); MEAN CORPUSCULAR HEMOGLOBIN 25.4 pg (27.0-34.0); MEAN CORPUSCULAR HGB CONC 29.7 g/dL (33.0-35.0); MEAN CORPUSCULAR VOLUME 85.5 fL (80-100); MONOCYTES PERCENT AUTO 1.5 % (2-8); NEUTROPHILS PERCENT AUTO 87.8 % (42.2-75.2); PLATELET COUNT,PLT 468 10^3/uL (150-450); RED BLOOD CELL COUNT 4.96 10^6/uL (4.2-5.4); WHITE BLOOD CELL COUNT,WBC 10.2 10^3/uL (5.0-10.0)
[2024-08-11 06:51] LABS: APPEARANCE,URINE CLEAR (CLEAR); BILIRUBIN,URINE NEGATIVE (NEGATIVE); COLOR,URINE YELLOW (YELLOW); GLUCOSE,URINE NEGATIVE (NEGATIVE); KETONES,URINE NEGATIVE (NEGATIVE); LEUKOCYTE ESTERASE,URINE NEGATIVE (NEGATIVE); NITRITE,URINE NEGATIVE (NEGATIVE); OCCULT BLOOD,URINE NEGATIVE (NEGATIVE); PH,URINE 6.5 (5.0-9.0); PROTEIN,URINE 30 (NEGATIVE); UROBILINOGEN,URINE 0.2 mg/dL (0.2-1.0)
[2024-08-11 06:54] LABS: AMPHETAMINES,URINE POSITIVE (NEGATIVE); BARBITURATES,URINE NEGATIVE (NEGATIVE); BENZODIAZEPINE,URINE POSITIVE (NEGATIVE); MDMA (ECSTASY), URINE POSITIVE (NEGATIVE); METHADONE,URINE NEGATIVE (NEGATIVE); METHAMPHETAMINES,URINE POSITIVE (NEGATIVE); OPIATES,URINE NEGATIVE (NEGATIVE); OXYCODONE,URINE NEGATIVE (NEGATIVE); PHENCYCLIDINE,URINE NEGATIVE (NEGATIVE); TCA,URINE NEGATIVE (NEGATIVE)
[2024-08-11 07:05] LABS: ALBUMIN 2.7 g/dL (3.4-5.0); ANION GAP 8.7 mEq/L (7-13); BILIRUBIN TOTAL 0.2 mg/dL (0.2-1.0); BUN/CREATININE RATIO 20.9 (No establ ref range); C-REACTIVE PROTEIN 3.37 ng/dL (<=0.50); CALCIUM 8.5 mg/dL (8.5-10.1); CREATININE 1.29 mg/dL (0.55-1.02); EST CRCL DRUG DOSING (CG) 44.05 mL/min; MAGNESIUM 2.4 mg/dL (1.8-2.4); POTASSIUM,K 4.7 mmol/L (3.5-5.1); PROTEIN TOTAL,TP 9.3 g/dL (6.4-8.2)
[2024-08-11 07:06] LABS: A/G RATIO 0.41
[2024-08-11] MEDS: Nicotine 21 MG/24 Hr Patch TRDERM SCH (10:00)
[2024-08-11] MEDS: Saccharomyces Boulardii (Probiotic) 250 MG Cap PO SCH (10:02)
[2024-08-11] MEDS: Bacitracin/Neomycin/Polymyxin B Oint 28.4 GM Tube TOP SCH (10:04)
[2024-08-11 11:47] LABS: AMORPHOUS SEDIMENT,URINE RARE /HPF (NOT SEEN); BACTERIA,URINE FEW /HPF (0-FEW/HPF); EPITHELIAL CELLS,URINE FEW /HPF (NOT SEEN); MUCUS,URINE FEW /LPF (NOT SEEN); RBC,URINE 0-5 /HPF (0-5); WBC,URINE 0-5 /HPF (0-5/HPF)
[2024-08-11] MEDS: Acetaminophen/oxyCODONE 325-5 MG Tab PO PRN (12:46)
[2024-08-11] MEDS: VANCOmycin 1.25 GM in Sodium Chloride 0.9% 250 ML IV SCH (20:30)
[2024-08-11] MEDS ORDERED: HYDROmorphone 2 MG/ML Syringe IVPUSH PRN (21:31)
[2024-08-11] MEDS: Temazepam 15 MG Cap PO PRN (22:57)
[2024-08-11] MEDS: Enoxaparin 40 MG/0.4 ML Syringe SUBCUT SCH (22:58)
[2024-08-11] MEDS: VANCOmycin 1.5 GM/300 ML 300 ML IV SCH (23:34)
[2024-08-12 05:53] LABS: BASOPHILS PERCENT AUTO 0.2 % (0.0-1.0); EOSINOPHILS PERCENT AUTO 1.2 % (1.0-3.0); HEMATOCRIT 40.7 % (37.0-47.0); HEMOGLOBIN 11.7 g/dL (12.0-16.0); LYMPHOCYTES PERCENT AUTO 19.4 % (20.5-50.1); MEAN CORPUSCULAR HEMOGLOBIN 25.4 pg (27.0-34.0); MEAN CORPUSCULAR HGB CONC 28.7 g/dL (33.0-35.0); MEAN CORPUSCULAR VOLUME 88.5 fL (80-100); MONOCYTES PERCENT AUTO 4.7 % (2-8); NEUTROPHILS PERCENT AUTO 74.5 % (42.2-75.2); PLATELET COUNT,PLT 451 10^3/uL (150-450)
[2024-08-12 06:18] LABS: C-REACTIVE PROTEIN 1.8 ng/dL (<=0.50); MAGNESIUM 2.3 mg/dL (1.8-2.4)
[2024-08-12 06:21] LABS: CREATININE 1.1 mg/dL (0.55-1.02); EST CRCL DRUG DOSING (CG) 51.66 mL/min; VANCOMYCIN RANDOM 22.1 ug/mL (No Normal Range)
[2024-08-12] MEDS: Formoterol/Mometasone 200-5 MCG 8.8 GM Inhaler INH ONE (08:44)
[2024-08-12] MEDS: cloNIDine 0.1 MG Tab PO SCH (08:52)
[2024-08-12] MEDS: Modafinil 100 MG Tab PO SCH (08:53)
[2024-08-12] MEDS: Dexamethasone 4 MG Tab PO SCH (08:53)
[2024-08-12] MEDS: Acetaminophen 325 MG Tab PO PRN (08:54)
[2024-08-12] MEDS ORDERED: Modafinil 100 MG Tab PO SCH (09:00)
[2024-08-12] MEDS: Formoterol/Mometasone 200-5 MCG 8.8 GM Inhaler INH SCH (18:00)
[2024-08-12] MEDS: VANCOmycin 1.5 GM/300 ML 300 ML IV SCH (22:43)
[2024-08-13 06:20] LABS: HEMATOCRIT 40.4 % (37.0-47.0); HEMOGLOBIN 11.5 g/dL (12.0-16.0); MEAN CORPUSCULAR HEMOGLOBIN 25.3 pg (27.0-34.0); MEAN CORPUSCULAR HGB CONC 28.5 g/dL (33.0-35.0); MEAN CORPUSCULAR VOLUME 88.8 fL (80-100); PLATELET COUNT,PLT 419 10^3/uL (150-450); RED BLOOD CELL COUNT 4.55 10^6/uL (4.2-5.4); WHITE BLOOD CELL COUNT,WBC 13.8 10^3/uL (5.0-10.0)
[2024-08-13 06:22] LABS: BASOPHILS PERCENT AUTO 0.1 % (0.0-1.0); EOSINOPHILS PERCENT AUTO 0.1 % (1.0-3.0); LYMPHOCYTES PERCENT AUTO 7.5 % (20.5-50.1); MONOCYTES PERCENT AUTO 2.7 % (2-8); NEUTROPHILS PERCENT AUTO 89.6 % (42.2-75.2)
[2024-08-13 06:41] LABS: A/G RATIO 0.42; ALBUMIN 2.5 g/dL (3.4-5.0); ANION GAP 8.7 mEq/L (7-13); BILIRUBIN TOTAL 0.2 mg/dL (0.2-1.0); BUN/CREATININE RATIO 17.1 (No establ ref range); C-REACTIVE PROTEIN 1.21 ng/dL (<=0.50); CALCIUM 8.4 mg/dL (8.5-10.1); CREATININE 1.05 mg/dL (0.55-1.02); EST CRCL DRUG DOSING (CG) 54.12 mL/min; MAGNESIUM 2.2 mg/dL (1.8-2.4); POTASSIUM,K 4.7 mmol/L (3.5-5.1); PROTEIN TOTAL,TP 8.5 g/dL (6.4-8.2)
[2024-08-13 07:18] LABS: BAND PERCENT MAN 1 %; BASOPHILS PERCENT MAN 1; HYPOCHROMASIA 1+ SLIGHT; LYMPHOCYTES PERCENT MAN 9 % (20-50); MONOCYTES PERCENT MAN 3 % (2-8); SEG NEUTROPHILS PERCENT MAN 86 % (42-75)
[2024-08-13 07:19] LABS: PLATELET COUNT ESTIMATE ADEQUATE; STOMATOCYTES 2+ MODERATE
[2024-08-13 12:34] VITALS: BP 141/86; PULSE 92
[2024-08-13] MEDS ORDERED: Check NICOTINE Patch TRDERM SCH (21:00)
== END 2024-08-13 15:20 | disposition home or self-care (01) | DRG 872 ==
LOC: DL.ED 18:46 → DL.MS 22:48 → UNDOADMIN 22:48 → DL.MS 23:54
PROVIDERS: ADMIT Internal Medicine; ATTEND Internal Medicine
DX: A41.9 Sepsis, unspecified organism (principal); L03.115 Cellulitis of right lower limb; J96.11 Chronic respiratory failure with hypoxia; F11.20 Opioid dependence, uncomplicated; Z68.42 Body mass index [BMI] 45.0-49.9, adult; L03.116 Cellulitis of left lower limb; E66.2 Morbid (severe) obesity with alveolar hypoventilation; N17.9 Acute kidney failure, unspecified; E66.9 Obesity, unspecified; J44.1 Chronic obstructive pulmonary disease with (acute) exacerbation; I11.0 Hypertensive heart disease with heart failure; I50.9 Heart failure, unspecified; F17.210 Nicotine dependence, cigarettes, uncomplicated; F32.A Depression, unspecified; J44.89 Other specified chronic obstructive pulmonary disease; G89.4 Chronic pain syndrome; E88.09 Other disorders of plasma-protein metabolism, not elsewhere classified; J04.0 Acute laryngitis; F15.10 Other stimulant abuse, uncomplicated; F13.10 Sedative, hypnotic or anxiolytic abuse, uncomplicated; Z79.51 Long term (current) use of inhaled steroids; Z88.5 Allergy status to narcotic agent; Z88.8 Allergy status to other drugs, medicaments and biological substances; Z79.899 Other long term (current) drug therapy; Z87.440 Personal history of urinary (tract) infections; Z86.16 Personal history of COVID-19; Z90.89 Acquired absence of other organs; Z98.890 Other specified postprocedural states; Z90.710 Acquired absence of both cervix and uterus; Z79.2 Long term (current) use of antibiotics; Z79.1 Long term (current) use of non-steroidal anti-inflammatories (NSAID)
CPT/HCPCS: 36415; 80053; 82306; 82550; 83036; 83605; 83735; 84145; 84439; 84443; 84484; 85025; 85379; 86140; 93005; 93010; 99284 ×2; A9270; J0692; J7050; 71045; 76770; 80202; 80305-QW; 81001; 82565; 93970; 94618; J1100; J1171; J1200; J1650; J2470; J3370; J3371; J3372; J3490; J7120; J8540

== ENCOUNTER 2025-01-11 18:18 | Emergency (ER) | payer MEDICAID ==
[2025-01-11 18:42] VITALS: BP 173/79; PULSE 110
[2025-01-11] MEDS: cefTRIAXone 1 GM, Lidocaine 1% 2.1 ML IM ONE (18:47)
== END 2025-01-11 18:54 | disposition home or self-care (01) ==
LOC: DL.ED 18:18
DX: H66.002 Acute suppurative otitis media without spontaneous rupture of ear drum, left ear (principal); I11.0 Hypertensive heart disease with heart failure; I50.9 Heart failure, unspecified; Z86.16 Personal history of COVID-19; Z88.5 Allergy status to narcotic agent; Z88.8 Allergy status to other drugs, medicaments and biological substances; Z79.899 Other long term (current) drug therapy; Z79.51 Long term (current) use of inhaled steroids
CPT/HCPCS: 87081; 87430; 96372; 99283; J0696; J2003

== ENCOUNTER 2025-04-15 22:35 | Emergency (ER) | payer MEDICAID ==
[2025-04-15 23:03] LABS: BASOPHILS PERCENT AUTO 0.2 % (0.0-1.0); EOSINOPHILS PERCENT AUTO 1.6 % (1.0-3.0); LYMPHOCYTES PERCENT AUTO 12.9 % (20.5-50.1); MONOCYTES PERCENT AUTO 4.8 % (2-8); NEUTROPHILS PERCENT AUTO 80.5 % (42.2-75.2); PLATELET COUNT,PLT 394 10^3/uL (150-450); RED BLOOD CELL COUNT 5.68 10^6/uL (4.2-5.4); WHITE BLOOD CELL COUNT,WBC 14.6 10^3/uL (5.0-10.0)
[2025-04-15] MEDS: Nitroglycerin 0.4 MG Tab.SL SL ONE (23:23)
[2025-04-15 23:24] LABS: B-TYPE NATRIURETIC PEPTIDE,BNP 129 pg/ml (0-100)
[2025-04-15 23:30] LABS: A/G RATIO 0.69; ALANINE AMINOTRANSFERASE,ALT 25 U/L (14-59); ASPARTATE AMNIOTRANSFERASE,AST 15 U/L (15-37); BILIRUBIN TOTAL 0.2 mg/dL (0.2-1.0); BLOOD UREA NITROGEN,BUN 16 mg/dL (7-18); CARBON DIOXIDE,CO2 34 mmol/L (21-32); CHLORIDE,CL 101 mmol/L (98-107); CREATININE 0.83 mg/dL (0.55-1.02); ESTIMATED GFR 84 mL/min (>=60); GLUCOSE RANDOM 127 mg/dL (70-99); LACTATE DEHYDROGENASE,LDH 228 U/L (81-234); POTASSIUM,K 4.4 mmol/L (3.5-5.1); PROTEIN TOTAL,TP 8.1 g/dL (6.4-8.2); SODIUM,NA 138 mmol/L (136-145)
[2025-04-15] MEDS: Furosemide 40 MG/4 ML VIAL IVPUSH ONE (23:36)
[2025-04-16 00:07] LABS: O2 DELIVERY DEVICE NON REBR MASK
[2025-04-16 00:12] LABS: BASE EXCESS VENOUS 5.5 mmol/l ((-2)-(+3)); BICARBONATE,VENOUS 37 mmol/l (19-25); O2 SATURATION VENOUS 93.6 % (60-80); PCO2 VENOUS 97 mmHg (41-51); PH,VENOUS 7.21 (7.31-7.41); PO2 VENOUS 83 mmHg (35-42)
[2025-04-16] MEDS: Rocuronium 100 MG/10 ML MDV IVPUSH ONE (00:33)
[2025-04-16] MEDS: propofoL 1,000 MG/100 ML 100 ML IV SCH (00:50)
[2025-04-16] MEDS: Albuterol 0.083% 2.5 MG/3 ML Neb Soln NEB ONE (01:03)
[2025-04-16 01:25] LABS: O2 DELIVERY DEVICE T-PIECE
[2025-04-16 01:41] LABS: PH,VENOUS 7.25 (7.31-7.41)
[2025-04-16 01:42] LABS: BASE EXCESS VENOUS 7.2 mmol/l ((-2)-(+3)); BICARBONATE,VENOUS 38 mmol/l (19-25); O2 SATURATION VENOUS 42.3 % (60-80); PCO2 VENOUS 88 mmHg (41-51); PO2 VENOUS 32 mmHg (35-42)
[2025-04-16 02:20] VITALS: BP 129/74; PULSE 97
[2025-04-16] MEDS: Etomidate 2 MG/ML 20 ML SDV IVPUSH ONE (02:30)
== END 2025-04-16 01:53 ==
LOC: DL.ED 22:35
DX: J96.90 Respiratory failure, unspecified, unspecified whether with hypoxia or hypercapnia (principal); J44.9 Chronic obstructive pulmonary disease, unspecified; I11.0 Hypertensive heart disease with heart failure; I50.9 Heart failure, unspecified; Z86.16 Personal history of COVID-19; Z88.5 Allergy status to narcotic agent; Z79.899 Other long term (current) drug therapy
CPT/HCPCS: 31500; 36415; 51702; 71045; 80053; 82803; 83605; 83615; 83735; 83880; 84484; 85025; 93005; 93010; 96365; 96375; 99291; 99292; A9270; J1938; J2704; J3490; J7512; J7613; J7620